=== PATIENT | female | born 1945 | race Caucasian/White ===

== ENCOUNTER 2019-06-15 09:52 | Inpatient (IN) | payer OTHER ==
[~2019-06-15] VITALS: Ht 160 cm; Wt 60.3 kg
[~2019-06-15 09:52] MED LIST: ATORVASTATIN CA10 MG PO; ATORVASTATIN CA20 MG PO; PANTOPRAZOLE SO40 MG PO; REQUIP0.5 MG PO; TRAZODONE HCL50 MG PO; TYLENOL WITH C1 EACH PO
--- OUTSIDE RECORDS SUMMARY | 2019-06-15 09:56 | XMS REPORT | Clinical Summary ---
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 Name Role Phone Oscar Pierson MD PCP Allergies No Known Allergies Medications End Date Status Medication Sig Dispensed Refills Start Date Active atorvastatin (LIPITOR) 40 TK 1 T PO QD 0 MG tablet HS 8 Active clopidogrel (PLAVIX) 75 TK 1 T PO QD 0 mg tablet 8 Active ergocalciferol (VITAMIN TK 1 C PO 0 D2) 50,000 unit capsule WEEKLY 8 Active FLUoxetine (PROzac) 20 MG TK 1 C PO QD 0 capsule IN THE 8 MORNING Active ADVAIR HFA 230-21 INL 2 PFS PO 2 mcg/actuation inhaler Q 12 H 8 Active gabapentin (NEURONTIN) TAKE 1 C PO 0 100 mg capsule TID 8 DIRECTED Active montelukast (SINGULAIR) TK 1 T PO QD 0 10 mg tablet IN THE PRAVIN 8 Active pantoprazole (PROTONIX) TK 1 T PO QD 0 40 MG EC tablet 8 Active rOPINIRole (REQUIP) 0.5 TK 1 T PO QD 0 MG tablet 8 Active traZODone (DESYREL) 50 MG TAKE 1 T PO 0 tablet HS PRN 8 Active Problems Problem Noted Date History of hemiarthroplasty of left hip 03/13/2018 Closed fracture of left hip 01/09/2018 Social History Date Tobacco Use Types Packs/Day Years Used Current Every Day Smoker Cigarettes Smokeless Tobacco: Never Used Alcohol Use Drinks/Week oz/Week Comments No Sex Assigned at Date Recorded Not on file Industry Job Start Date Occupation Not on file Not on file Not on file Travel End Travel History Travel Start No recent travel history available. Last Filed Vital Signs Not on file Plan of Treatment Health Maintenance Due Date Last Done Comments BREAST CANCER SCREENING 1995 COLONOSCOPY SCREENING 1995 SHINGLES VACCINES (#1) 1995 65+ PNEUMOCOCCAL VACCINE 2010 (1 of 2 - PCV13) INFLUENZA VACCINE 06/04/2019 Implants Device Identifier Shelf Expiration Date Model / Serial / Lot Implanted Type Area Manufactur er 09/28/2027 [id number] / / [id number] Stem Fml Pors Coat Std Ti #14 160mm Hip Joint Left: Hip [employer] Synergy - [id number] Implants NEPHEW Implanted: Qty: 1 on 01/09/2018 by ORTHOPEDIC Trenton Glaser MD S 02/20/2027 [id number] / / [id number] Head Unipol Implant Cob-Chr 46mm Hip Joint Left: Hip KAUR AND Tandem - [id number] Implants NEPHEW Implanted: Qty: 1 on 01/09/2018 by ORTHOPEDIC Trenton Glaser MD S 05/12/2027 [id number] / / [id number] Sleeve Hip 12/14 Tprd Unipol +8mm Hip Joint Left: Hip KAUR AND Tandem - [id number] Implants NEPHEW Implanted: Qty: 1 on 01/09/2018 by ORTHOPEDIC Trenton Glaser MD S Results Not on fileafter 06/14/2018 Insurance Type Payer Benefit Subscriber ID Effective Phone Address Plan / Dates Group HMO [employer] TEX[employer] xxxxxxxxx 2015-P JAIRO deal Advance Directives Patient has advance care planning documents, and code status on file. For more i nformation, please contact: Anibal Bowles [address] [place] [address] Date Inactivated Comments Code Status Date Activated 01/09/2018 6:18 PM Full Code 01/09/2018 9:12 AM Code Status decision reached by: Patient
--- OUTSIDE RECORDS SUMMARY | 2019-06-15 09:57 | XMS REPORT ---
Author Author [facility] Address Unknown Phone Unavailable Care Team Providers Care Reformatory Attendant Name Role Phone Unavailable Unavailable Payers Payer Name Policy Type Policy Number Effective Date Expiration Date Problems This patient has no known problems. Allergies, Adverse Reactions, Alerts Allergy Name Allergy Type Status Severity Reaction(s) Onset Date Inactive Date Treating Clinician Comments No Known Allergies DA Active U 2018-12-22 00:00:00 No Known Drug Intolerances DA Active U 2009-05-02 00:00:00 Not Converted 80. See Text. DA Active U 2009-05-02 00:00:00 No Known Contrast Allergies DA Active U 2007-10-27 00:00:00 No Known Drug Allergies DA Active U 2007-10-27 00:00:00 No Known Food Allergies DA Active U 2007-10-27 00:00:00 No Known Other Allergies DA Active U 2007-10-27 00:00:00 Medications This patient has no known medications. Results Test Description Test Time Test Comments Text Results Atomic Results Result Comments - XR CHEST 1 V 2019-02-20 11:37:00 FAX: Jude Anderson MD [phone] [place]: B St: REG Name: HERSON PINK [facility] : 1945 Age/S: 73/F [address] [facility] Unit #: [id number] Loc: [place] [address] Phys: Jude Hall MD Acct: [id number] Dis Date: Status: REG SDC PHONE #: [phone] Exam Date: 02/20/2019 1107 FAX #: [phone] Reason: S/P PORT-A-CATH PLACEMENT EXAMS: CPT CODE: [id number] XR CHEST 1 V 75057 HISTORY: Port-A-Cath placement. COMPARISON: December 29, 2018. Left Port-A-Cath with the tip projected over the SVC. No pneumothorax. Small left effusion with scarring. Right lower lobe mass is not clearly visible. COPD and scarring. Cardiomegaly. IMPRESSION: Left Port-A-Cath with the tip projected over the SVC. No pneumothorax. at 1132 Reported and signed by: Luciano Nesbitt M.D. CC: Jude Hall MD Technologist: Gracie Boston(Ly) Trnscrd Date/Time/By: 02/20/2019 (9248) : By: [email or web address] Orig Print D/T: S: 02/20/2019 (8422) PAGE 1 Signed Report CBC W/AUTO DIFF 2019-02-18 17:03:00 WHITE BLOOD CELL (test code=WBC) 9.2 K/mm3 4.5-12.5 RED BLOOD CELL (test code=RBC) 4.23 mill/mm3 3.7-5.2 HEMOGLOBIN (test code=HGB) 11.6 gram/dL 11.5-15.5 HEMATOCRIT (test code=HCT) 39.6 % 36.0-46.0 MEAN CELL VOLUME (test code=MCV) 93.6 fL 80-98 MEAN CELL HGB (test code=MCH) 27.4 picogram 27.0-33.0 MEAN CELL HGB CONCETRATION (test code=MCHC) 29.3 gram/dL 33.0-36.0 RED CELL DISTRIBUTION WIDTH (test code=RDW) 15.6 % 11.6-16.2 RED CELL DISTRIBUTION WIDTH SD (test code=RDW-SD) 53.1 fL 37.0-51.0 PLATELET COUNT (test code=PLT) 285 K/mm3 150-450 MEAN PLATELET VOLUME (test code=MPV) 11.6 fL 6.7-11.0 NEUTROPHIL % (test code=NT%) 63.0 % 39.0-69.0 IMMATURE GRANULOCYTE % (test code=IG%) 0.3 % 0.0-5.0 LYMPHOCYTE % (test code=LY%) 25.3 % 25.0-55.0 MONOCYTE % (test code=MO%) 9.0 % 0.0-10.0 EOSINOPHIL % (test code=EO%) 1.7 % 0.0-5.0 BASOPHIL % (test code=BA%) 0.7 % 0.0-1.0 NUCLEATED RBC % (test code=NRBC%) 0.0 % 0-0 NEUTROPHIL # (test code=NT#) 5.77 K/mm3 1.8-7.7 IMMATURE GRANULOCYTE # (test code=IG#) 0.03 x10 3/uL 0-0.03 LYMPHOCYTE # (test code=LY#) 2.32 K/mm3 1.0-5.0 MONOCYTE # (test code=MO#) 0.82 K/mm3 0-0.8 EOSINOPHIL # (test code=EO#) 0.16 K/mm3 0.0-0.5 BASOPHIL # (test code=BA#) 0.06 K/mm3 0.0-0.2 NUCLEATED RBC # (test code=NRBC#) 0.00 K/mm3 0.0-0.1 MANUAL DIFF REQUIRED (test code=MDIFF) NO, ONLY SCAN NEEDED DIFFERENTIAL [id number] 17:03:00* Test Item Value Reference Range Comments STAIN ACCEPTABILITY (test code=STN ACCEPTABLE) STAIN ACCEPTABLE MORPHOLOGY COMMENT (test code=MOC) NORMAL PLATELET ESTIMATE (test code=PLTEST) ADEQUATE PLATELET MORPHOLOGY (test code=PLTMORPH) SIZE VARIABLE COMPREHENSIVE METABOLIC [id number] 16:18:00* Test Item Value Reference Range Comments SODIUM (test code=NA) 141 mmol/L 136-145 POTASSIUM (test code=K) 3.7 mmol/L 3.5-5.1 CHLORIDE (test code=CL) 108.0 mmol/L 98-107 CARBON DIOXIDE (test code=CO2) 28.0 mmol/L 21-32 ANION GAP (test code=GAP) 8.7 10-20 GLUCOSE (test code=GLU) 112 mg/dL 74-106 BLOOD UREA NITROGEN (test code=BUN) 12 mg/dL 7-18 GLOMERULAR FILTRATION RATE (test code=GFR) > 60 mL/min >=60 Estimated GFR by using Modified MDRD formula.Chronic kidney disease is defined as either kidney damageor GFR <60 mL/min/1.73 m2 for >3 months. CREATININE (test code=CREAT) 0.70 mg/dL 0.55-1.02 Note change in reference range due to change in reagent. BUN/CREATININE RATIO (test code=BUN/CREA) 17.1 10-20 TOTAL PROTEIN (test code=PROT) 7.7 gram/dL 6.4-8.2 ALBUMIN (test code=ALB) 3.9 g/dL 3.4-5.0 GLOBULIN (test code=GLOB) 3.8 gram/dL 2.7-4.2 ALBUMIN/GLOBULIN RATIO (test code=A/G) 1.0 0.75-1.50 CALCIUM (test code=CA) 11.1 mg/dL 8.5-10.1 BILIRUBIN TOTAL (test code=BILT) 0.30 mg/dL 0.0-1.0 SGOT/AST (test code=AST) 23 IUnit/L 15-37 SGPT/ALT (test code=ALT) 22 IUnit/L 12-78 ALKALINE PHOSPHATASE TOTAL (test code=ALKP) 151 IUnit/L 45-117 Note change in reference range due to change in reagent. COMPREHENSIVE METABOLIC [id number] 16:09:00* Test Item Value Reference Range Comments SODIUM (test code=NA) 141 mmol/L 136-145 POTASSIUM (test code=K) 3.7 mmol/L 3.5-5.1 CHLORIDE (test code=CL) 108.0 mmol/L 98-107 CARBON DIOXIDE (test code=CO2) mmol/L 21-32 ANION GAP (test code=GAP) 10-20 GLUCOSE (test code=GLU) mg/dL 74-106 BLOOD UREA NITROGEN (test code=BUN) mg/dL 7-18 GLOMERULAR FILTRATION RATE (test code=GFR) mL/min >=60 CREATININE (test code=CREAT) mg/dL 0.55-1.02 BUN/CREATININE RATIO (test code=BUN/CREA) 10-20 TOTAL PROTEIN (test code=PROT) gram/dL 6.4-8.2 ALBUMIN (test code=ALB) g/dL 3.4-5.0 GLOBULIN (test code=GLOB) gram/dL 2.7-4.2 ALBUMIN/GLOBULIN RATIO (test code=A/G) 0.75-1.50 CALCIUM (test code=CA) mg/dL 8.5-10.1 BILIRUBIN TOTAL (test code=BILT) mg/dL 0.0-1.0 SGOT/AST (test code=AST) IUnit/L 15-37 SGPT/ALT (test code=ALT) IUnit/L 12-78 ALKALINE PHOSPHATASE TOTAL (test code=ALKP) IUnit/L 45-117 CBC W/AUTO [id number] 15:17:00* Test Item Value Reference Range Comments WHITE BLOOD CELL (test code=WBC) 9.2 K/mm3 4.5-12.5 RED BLOOD CELL (test code=RBC) 4.23 mill/mm3 3.7-5.2 HEMOGLOBIN (test code=HGB) 11.6 gram/dL 11.5-15.5 HEMATOCRIT (test code=HCT) 39.6 % 36.0-46.0 MEAN CELL VOLUME (test code=MCV) 93.6 fL 80-98 MEAN CELL HGB (test code=MCH) 27.4 picogram 27.0-33.0 MEAN CELL HGB CONCETRATION (test code=MCHC) 29.3 gram/dL 33.0-36.0 RED CELL DISTRIBUTION WIDTH (test code=RDW) 15.6 % 11.6-16.2 RED CELL DISTRIBUTION WIDTH SD (test code=RDW-SD) 53.1 fL 37.0-51.0 PLATELET COUNT (test code=PLT) 285 K/mm3 150-450 MEAN PLATELET VOLUME (test code=MPV) 11.6 fL 6.7-11.0 NEUTROPHIL % (test code=NT%) 63.0 % 39.0-69.0 IMMATURE GRANULOCYTE % (test code=IG%) 0.3 % 0.0-5.0 LYMPHOCYTE % (test code=LY%) 25.3 % 25.0-55.0 MONOCYTE % (test code=MO%) 9.0 % 0.0-10.0 EOSINOPHIL % (test code=EO%) 1.7 % 0.0-5.0 BASOPHIL % (test code=BA%) 0.7 % 0.0-1.0 NUCLEATED RBC % (test code=NRBC%) 0.0 % 0-0 NEUTROPHIL # (test code=NT#) 5.77 K/mm3 1.8-7.7 IMMATURE GRANULOCYTE # (test code=IG#) 0.03 x10 3/uL 0-0.03 LYMPHOCYTE # (test code=LY#) 2.32 K/mm3 1.0-5.0 MONOCYTE # (test code=MO#) 0.82 K/mm3 0-0.8 EOSINOPHIL # (test code=EO#) 0.16 K/mm3 0.0-0.5 BASOPHIL # (test code=BA#) 0.06 K/mm3 0.0-0.2 NUCLEATED RBC # (test code=NRBC#) 0.00 K/mm3 0.0-0.1 MANUAL DIFF REQUIRED (test code=MDIFF) NO, ONLY SCAN NEEDED DIFFERENTIAL [id number] 15:17:00* Test Item Value Reference Range Comments STAIN ACCEPTABILITY (test code=STN ACCEPTABLE) CABOT RINGS (test code=CAB) MORPHOLOGY COMMENT (test code=MOC) PLATELET ESTIMATE (test code=PLTEST) PLATELET MORPHOLOGY (test code=PLTMORPH) CBC W/AUTO [id number] 15:17:00* Test Item Value Reference Range Comments WHITE BLOOD CELL (test code=WBC) 9.2 K/mm3 4.5-12.5 RED BLOOD CELL (test code=RBC) 4.23 mill/mm3 3.7-5.2 HEMOGLOBIN (test code=HGB) 11.6 gram/dL 11.5-15.5 HEMATOCRIT (test code=HCT) 39.6 % 36.0-46.0 MEAN CELL VOLUME (test code=MCV) 93.6 fL 80-98 MEAN CELL HGB (test code=MCH) 27.4 picogram 27.0-33.0 MEAN CELL HGB CONCETRATION (test code=MCHC) 29.3 gram/dL 33.0-36.0 RED CELL DISTRIBUTION WIDTH (test code=RDW) 15.6 % 11.6-16.2 RED CELL DISTRIBUTION WIDTH SD (test code=RDW-SD) 53.1 fL 37.0-51.0 PLATELET COUNT (test code=PLT) 285 K/mm3 150-450 MEAN PLATELET VOLUME (test code=MPV) 11.6 fL 6.7-11.0 NEUTROPHIL % (test code=NT%) 63.0 % 39.0-69.0 IMMATURE GRANULOCYTE % (test code=IG%) 0.3 % 0.0-5.0 LYMPHOCYTE % (test code=LY%) 25.3 % 25.0-55.0 MONOCYTE % (test code=MO%) 9.0 % 0.0-10.0 EOSINOPHIL % (test code=EO%) 1.7 % 0.0-5.0 BASOPHIL % (test code=BA%) 0.7 % 0.0-1.0 NUCLEATED RBC % (test code=NRBC%) 0.0 % 0-0 NEUTROPHIL # (test code=NT#) 5.77 K/mm3 1.8-7.7 IMMATURE GRANULOCYTE # (test code=IG#) 0.03 x10 3/uL 0-0.03 LYMPHOCYTE # (test code=LY#) 2.32 K/mm3 1.0-5.0 MONOCYTE # (test code=MO#) 0.82 K/mm3 0-0.8 EOSINOPHIL # (test code=EO#) 0.16 K/mm3 0.0-0.5 BASOPHIL # (test code=BA#) 0.06 K/mm3 0.0-0.2 NUCLEATED RBC # (test code=NRBC#) 0.00 K/mm3 0.0-0.1 MANUAL DIFF REQUIRED (test code=MDIFF) NO, ONLY SCAN NEEDED DIFFERENTIAL [id number] 15:17:00* Test Item Value Reference Range Comments STAIN ACCEPTABILITY (test code=STN ACCEPTABLE) CABOT RINGS (test code=CAB) MORPHOLOGY COMMENT (test code=MOC) PLATELET ESTIMATE (test code=PLTEST) PLATELET MORPHOLOGY (test code=PLTMORPH) CBC W/AUTO [id number] 15:17:00* Test Item Value Reference Range Comments WHITE BLOOD CELL (test code=WBC) 9.2 K/mm3 4.5-12.5 RED BLOOD CELL (test code=RBC) 4.23 mill/mm3 3.7-5.2 HEMOGLOBIN (test code=HGB) 11.6 gram/dL 11.5-15.5 HEMATOCRIT (test code=HCT) 39.6 % 36.0-46.0 MEAN CELL VOLUME (test code=MCV) 93.6 fL 80-98 MEAN CELL HGB (test code=MCH) 27.4 picogram 27.0-33.0 MEAN CELL HGB CONCETRATION (test code=MCHC) 29.3 gram/dL 33.0-36.0 RED CELL DISTRIBUTION WIDTH (test code=RDW) 15.6 % 11.6-16.2 RED CELL DISTRIBUTION WIDTH SD (test code=RDW-SD) 53.1 fL 37.0-51.0 PLATELET COUNT (test code=PLT) 285 K/mm3 150-450 MEAN PLATELET VOLUME (test code=MPV) 11.6 fL 6.7-11.0 NEUTROPHIL % (test code=NT%) 63.0 % 39.0-69.0 IMMATURE GRANULOCYTE % (test code=IG%) 0.3 % 0.0-5.0 LYMPHOCYTE % (test code=LY%) 25.3 % 25.0-55.0 MONOCYTE % (test code=MO%) 9.0 % 0.0-10.0 EOSINOPHIL % (test code=EO%) 1.7 % 0.0-5.0 BASOPHIL % (test code=BA%) 0.7 % 0.0-1.0 NUCLEATED RBC % (test code=NRBC%) 0.0 % 0-0 NEUTROPHIL # (test code=NT#) 5.77 K/mm3 1.8-7.7 IMMATURE GRANULOCYTE # (test code=IG#) 0.03 x10 3/uL 0-0.03 LYMPHOCYTE # (test code=LY#) 2.32 K/mm3 1.0-5.0 MONOCYTE # (test code=MO#) 0.82 K/mm3 0-0.8 EOSINOPHIL # (test code=EO#) 0.16 K/mm3 0.0-0.5 BASOPHIL # (test code=BA#) 0.06 K/mm3 0.0-0.2 NUCLEATED RBC # (test code=NRBC#) 0.00 K/mm3 0.0-0.1 MANUAL DIFF REQUIRED (test code=MDIFF) NO, ONLY SCAN NEEDED DIFFERENTIAL [id number] 15:17:00* Test Item Value Reference Range Comments STAIN ACCEPTABILITY (test code=STN ACCEPTABLE) MORPHOLOGY COMMENT (test code=MOC) PLATELET ESTIMATE (test code=PLTEST) PLATELET MORPHOLOGY (test code=PLTMORPH) CBC W/AUTO [id number] 15:17:00* Test Item Value Reference Range Comments WHITE BLOOD CELL (test code=WBC) 9.2 K/mm3 4.5-12.5 RED BLOOD CELL (test code=RBC) 4.23 mill/mm3 3.7-5.2 HEMOGLOBIN (test code=HGB) 11.6 gram/dL 11.5-15.5 HEMATOCRIT (test code=HCT) 39.6 % 36.0-46.0 MEAN CELL VOLUME (test code=MCV) 93.6 fL 80-98 MEAN CELL HGB (test code=MCH) 27.4 picogram 27.0-33.0 MEAN CELL HGB CONCETRATION (test code=MCHC) 29.3 gram/dL 33.0-36.0 RED CELL DISTRIBUTION WIDTH (test code=RDW) 15.6 % 11.6-16.2 RED CELL DISTRIBUTION WIDTH SD (test code=RDW-SD) 53.1 fL 37.0-51.0 PLATELET COUNT (test code=PLT) 285 K/mm3 150-450 MEAN PLATELET VOLUME (test code=MPV) 11.6 fL 6.7-11.0 NEUTROPHIL % (test code=NT%) 63.0 % 39.0-69.0 IMMATURE GRANULOCYTE % (test code=IG%) 0.3 % 0.0-5.0 LYMPHOCYTE % (test code=LY%) 25.3 % 25.0-55.0 MONOCYTE % (test code=MO%) 9.0 % 0.0-10.0 EOSINOPHIL % (test code=EO%) 1.7 % 0.0-5.0 BASOPHIL % (test code=BA%) 0.7 % 0.0-1.0 NUCLEATED RBC % (test code=NRBC%) 0.0 % 0-0 NEUTROPHIL # (test code=NT#) 5.77 K/mm3 1.8-7.7 IMMATURE GRANULOCYTE # (test code=IG#) 0.03 x10 3/uL 0-0.03 LYMPHOCYTE # (test code=LY#) 2.32 K/mm3 1.0-5.0 MONOCYTE # (test code=MO#) 0.82 K/mm3 0-0.8 EOSINOPHIL # (test code=EO#) 0.16 K/mm3 0.0-0.5 BASOPHIL # (test code=BA#) 0.06 K/mm3 0.0-0.2 NUCLEATED RBC # (test code=NRBC#) 0.00 K/mm3 0.0-0.1 MANUAL DIFF REQUIRED (test code=MDIFF) NO, ONLY SCAN NEEDED DIFFERENTIAL [id number] 15:17:00* Test Item Value Reference Range Comments STAIN ACCEPTABILITY (test code=STN ACCEPTABLE) CABOT RINGS (test code=CAB) MORPHOLOGY COMMENT (test code=MOC) PLATELET ESTIMATE (test code=PLTEST) PLATELET MORPHOLOGY (test code=PLTMORPH) CBC W/AUTO [id number] 15:12:00* Test Item Value Reference Range Comments WHITE BLOOD CELL (test code=WBC) K/mm3 4.5-12.5 RED BLOOD CELL (test code=RBC) mill/mm3 3.7-5.2 HEMOGLOBIN (test code=HGB) 11.6 gram/dL 11.5-15.5 HEMATOCRIT (test code=HCT) 39.6 % 36.0-46.0 MEAN CELL VOLUME (test code=MCV) fL 80-98 MEAN CELL HGB (test code=MCH) picogram 27.0-33.0 MEAN CELL HGB CONCETRATION (test code=MCHC) gram/dL 33.0-36.0 RED CELL DISTRIBUTION WIDTH (test code=RDW) % 11.6-16.2 RED CELL DISTRIBUTION WIDTH SD (test code=RDW-SD) fL 37.0-51.0 PLATELET COUNT (test code=PLT) K/mm3 150-450 MEAN PLATELET VOLUME (test code=MPV) fL 6.7-11.0 NEUTROPHIL % (test code=NT%) % 39.0-69.0 IMMATURE GRANULOCYTE % (test code=IG%) % 0.0-5.0 LYMPHOCYTE % (test code=LY%) % 25.0-55.0 MONOCYTE % (test code=MO%) % 0.0-10.0 EOSINOPHIL % (test code=EO%) % 0.0-5.0 BASOPHIL % (test code=BA%) % 0.0-1.0 NEUTROPHIL # (test code=NT#) K/mm3 1.8-7.7 LYMPHOCYTE # (test code=LY#) K/mm3 1.0-5.0 MONOCYTE # (test code=MO#) K/mm3 0-0.8 EOSINOPHIL # (test code=EO#) K/mm3 0.0-0.5 BASOPHIL # (test code=BA#) K/mm3 0.0-0.2 [id number] 14:23:00 RUN DATE: 12/30/18 [facility] PAGE 1 RUN TIME: 1423 Specimen Inqui ry RUN USER: INTERFACE PATIENT: HERSON PINK ACCT #: V [id number] LOC: [place] U #: [id number] AGE/SX: 73/F ROOM: RE12/29/18REG DR: Kal Shaffer MD : 45 BED: DIS: [place] [facility] [place] SPEC #: [id number] RECD: 12/29/18 STATUS: KWADWO MCLEOD #: [id number] ATIF: 12/29/18 DR: Kal Shaffer MD ENTERED: 12/29/18 SP TYPE: LUNG OTHR DR: Oscar Pierson MD TUMOR REGISTRYORDERED: GROSS COPIES TO: Oscar Pierson MD [address] [place] [address] TUMOR REGISTRY Kal Shaffer MD [address] [place] [address] MARKERS: MALIGNANCY PROCE DURES: GROSS (12/30/18) TISSUES: LUNG, NOS - BX AND 4 SLIDES CLINICAL HISTORY COLLECTION DATE: 12/29/2018 RIGHT LUNG BIOPSY PO ST-OP DIAGNOSIS: BRONCHOGENIC CARCINOMA COMMENT Dr. Giorgio Flowers was n otified at 2:10 p.m. on 12/30/2018. FINAL DIAGNOSIS Lung, right, biops y: ADENOCARCINOMA, WELL DIFFERENTIATED Lung, right, cytologic e valuation: POSITIVE FOR MALIGNANCY, CONSISTENT WITH ADENOCARCINOMA FA/sm CONTINUED ON NEXT PAGE ------ ------RUN DATE: 12/30/18 [facility] RUN TIME: 1423 Specimen Inquiry RUN USER: INTERFACE SPEC #: [id number] PATIENT: HERSON PINK #[id number] (Continued) FINAL DIAGNOSIS (Continued) D 38318, 6[address]18 MACROSCOPIC The specimen is re ceived in formalin and labeled with the patient's name. The specimen is label ed as "right lung biopsy" and consists of multiple gee-white core biopsies ran ging from 0.3 to 1.0 cm, submitted in entirely in a single cassette. Also rec eived are four smear slides which are submitted for cytologic evaluation. GROSS PERFORMED AT [facility] [address] [place] [phone] MICROSCOPIC Section s show a well differentiated adenocarcinoma. The tumor cells show mild nuclear pleomorphism, moderate amount of cytoplasm, and rare intranuclear pseudoinclu sions, Focal desmoplastic stromal reaction is present. No normal appearing dl ng tissue is present. No necrosis is present. Cytologic evaluation of ea rs shows single and groups of atypical cells with mild nuclear pleomorphisms, moderate amount of cytoplasm some of which are vacuolated, nuclear membrane ir regularities and rare intranuclear pseudoinclusion. Cytologic findings are co nsistent with adenocarcinoma. MICROSCOPIC PERFORMED AT [facility] All of the stains, including any controls performed, stain appropr iately. [address] [address] [phone] PERFORMING SITE Diagnosis performed at: [facility] [address] [address] 04 CONTINUED ON NEXT PAGE RUN DATE: 12/30/18 [facility] PAGE 3 RUN TIME: 142 Specimen In quiry RUN USER: INTERFACE SPEC #: [id number] PATIENT: FREDA PINK #[id number] (Continued) Signed SIGNATURE ON FILE Juan Pablo Ferreira MD 12/30/18 1423 ---- -------- END OF REPORT [id number] 14:23:00 RUN DATE: 01/29/19 [facility] PAGE 1 RUN TIME: 1241 Specimen Inqui ry RUN USER: INTERFACE PATIENT: JOESPHHERSON ACCT #: V [id number] LOC: [place] U #: [id number] AGE/SX: 73/F ROOM: RE12/29/18[facility] DR: Kal Shaffer MD : 45 BED: DIS: STATUS: [facility] TLOC: SPEC #: [id number] RECD: 12/29/18-1049 STATUS: KWADWO MCLEOD #: [id number] ATIF: 12/29/18- SUBM DR: Kal Shaffer MD ENTERED: 12/29/18 SP TYPE: LUNG OTHR DR: Oscar Pierson MD TUMOR REGISTRYORDERED: GROSS COPIES TO: Oscar Pierson MD [address] [place] [address] TUMOR REGISTRY Kal Shaffer MD [address] [place], [place] [id number] MARKERS: MALIGNANCY PROCE DURES: GROSS (12/30/18-1334) TISSUES: LUNG, NOS - BX AND 4 SLIDES ADDENDUM FINDINGS Addendum #1 Entered: 01/29/19 Reports are received from [facility] ([id number]) and the interpretation is transcribed below: EGFR REPORT Clinical Data Adenocar cinoma, well differentiated; Lung nodules; Bronchogenic carcinoma Interpreta tion Tissue NEGATIVE FOR MUTATIONS IN EGFR Clinical significance Epiderma l growth factor receptor (EGFR) mutation analysis detects EGFR gene mutations in tumor specimens of patients most commonly found in nonsmall cell lung cancer ( NSCLC) CONTINUED ON NEXT PAGE R UN DATE: 01/29/19 [place] [facility] PAGE 2 RUN TIME: 1241 Specimen Inquiry RUN USER: INTERFACE SPEC #: [id number] PATIENT: HERSON PINK #[id number] (Continued) ADDENDUM FINDINGS (C ivis) (1). When activated, EGFR plays a role in cellular tumor growth and proliferation and is the target of tyrosine kinase inhibitors (TKI). Clinical s fifi have found that up to 20% of NSCLC tumors harbor EGFR mutations, and valerie t about 85% of patients with these mutations respond to TKI treatment (2). Note: Mutation test results should be interpreted within the context of clinical information and all other relevant findings on this patient. No therapeutic ac tion should be taken solely based upon these results. Methodology The tumo r area on an H E slide for this formalin-fixed paraffin-embedded (FFPE) specimen was identified by a board certified pathologist and is >20% of tissue. The tumor area is then macrodissected and genomic DNA is extracted and subjected to a PCR assay (tumor burden must be >10%). Amplified products are bi- directionally analyzed by capillary electrophoresis to evaluate for the presence of deletion, insertion, or single nucleotide substitution within exons 18 (G719X), 19 ( U839-T433), 20 (T790M) or 21 (L858R) of the EGFR gene. The limit of detection is > 20%. For the sensitive detection of T790M mutation in Exon 20, a PCR based assay is used that amplifies mutant-specific sequences in samples that contain a mixture of mutant and wild-type DNA and relies on fluorescent probes for detection. Detection of a mutation depends on sample integrity and the amount of amplifiable DNA present in the specimen. The analytical sensitivity of this assay is 0.5% mutant DNA in the background of wild type genomic DNA. Interpretation of Data Negative: No mutation(s) detected Positive: One or more mutations detected References 1. Matt ARANA, Megan S, Barry MR, et al. [employer] Society of Clinical Oncology Provisional Clinical Opinion: epidermal growth factor receptor (EGFR) mutation testing for patients with advanced kwa-yjprq-wkjs lung cancer considering first-line EGFR tyrosine kinase inhibitor therapy. J Clin Oncol 2011;29:2121- 7. 2. Eliecer C, Ifeanyi Y-L, Carolina G, et al. Erlotinib Erlotinib versus chemotherapy as first-line treatment for patients with advanced EGFR mutation-positive pwq-nqlda-nrmy lung cancer (OPTIMAL, CTONG-0802): a multicentre, open-label, randomized, phase 3 study. Lancet Oncol 2011;12:735-42. This test was developed and its performance characteristics determined by [facility]. It has not been cleared or approved by the U.S. Food and Drug Admini stration. The FDA has determined that such clearance is not necessary. This test is used for clinical purposes. It should not be regarded as investigational or for research. This laboratory is certified under the Clinical Laboratory Impro vement Amendments of 1988 (CLIA-88) as qualified to perform high complexity cli nical testing. The above report was reviewed and interpretive comments are p rovided. The comments are approved for the medical records of the identified ignacio de dios with my electronic signature. Electronic Signature Cori Cobb CONTINUED ON NEXT PAGE RUN DATE: 01/29/19 [facility] P AGE 3 RUN TIME: 1241 Specimen Inquiry RUN USER: INTERFACE SPEC #: [id number] PATIENT: HERSON PINK Cas #[id number] (Continued) ADDENDUM FINDINGS (Cont inued) CPT Code(s): 94856,14657,D9698-66 ICD Code(s): C34.90 The Techn ical and Professional components were performed at [facility], [address] , [address], [place] [address]. FISH REPORT Clinical Data Adenocarcinoma, well differe ntiated; Lung nodules; Bronchogenic carcinoma Interpretation ALK(2p23): Negative for rearrangement of ALK. Comment: No rearrangements detected on A LK(2p23) above the cut off value. 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 Th e tumor tissue in the specimen was analyzed using ALK break apart FISH probe ass ay. Fluorescence in situ hybridization (FISH) was performed using probes detect ing rearrangements of ALK. (All probes [employer]) Methodolgy: The ALK B reak Apart FISH Probe assay is a qualitative test to detect rearrangements invo lving the ALK gene via fluorescence in situ hybridization (FISH) in formalin-fix ed paraffin-embedded (FFPE), non-small cell lung cancer (NSCLC) tissue specimen s. Interphase FISH is performed to screen for the loci indicated above and does not detect other chromosomal abnormalities. INTERPHASE FISH RESULTS Probe % Negative % Positive Reserve Value % Nuclei Nuclei Nuclei Analyzed ALK (2p23_LUNG) 100 0 9.0 50 Scoring Process: The scoring for this case was co mpleted using a per cell nuclei approach to signal counting and was performed m anually by a licensed technologist. Disclaimer: This test was developed and its performance characteristics determined by CONTINUED ON NEXT PAGE RUN DATE: 01/29/19 [facility] PAGE 4 RUN TIME: 1241 Specimen Inquiry RUN USER: INTERFACE SPEC #: [id number] PATIENT: HERSON PINK #[id number] (Continued)------ ------ ADDENDUM FINDINGS (Continued) [facility]. It has not been cleared or approved by the U.S. Food and Drug Administration. The FDA has determined that such clearance is not necessary. This test is used for clinical purposes. It should not be regarded as investigational or for researc h. This laboratory is certified under the Clinical Laboratory Improvement Amend ments of 1988 (CLIA-88) as qualified to perform high complexity clinical testing . Electronic Signature Alban Ferraro M.D. CPT Code(s): 12950 ICD Co de(s): C34.90 The Technical and Professional components were performed at [facility], [address] [place] [address], [address], [place] [address] . Addendum Signed SIGNATURE ON FILE Juan Pablo Ferreira MD 01/29/19 1240 CLINICAL HISTORY COLLECTION DATE: 12/29/2018 R IGHT LUNG BIOPSY POST-OP DIAGNOSIS: BRONCHOGENIC CARCINOMA COMMRAUL Flowers was notified at 2:10 p.m. on 12/30/2018. FINAL DIAGNOSIS Lung, right, biopsy: ADENOCARCINOMA, WELL DIFFERENTIATED Riley g, right, cytologic evaluation: POSITIVE FOR MALIGNANCY, CONSISTENT WITH ADENOCARCINOMA FA/ D 64101, [address] CONTINUED ON NEXT PAGE RUN DATE: 01/29/19 [place] - Lab PAGE 5 RUN TIME: 1241 Specimen Inquiry RUN USER: INTERFACE SPEC #: [id number] PATIENT: HERSON PINK #[id number] (Continu ed) MACROSCOPIC The specimen is received in formalin a nd labeled with the patient's name. The specimen is labeled as "right lung bi opsy" and consists of multiple gee-white core biopsies ranging from 0.3 to 1.0 cm, submitted in entirely in a single cassette. Also received are four smear slides which are submitted for cytologic evaluation. [place] [address] [phone])[phone] MICROSCOPIC Sections show a well differ entiated adenocarcinoma. The tumor cells show mild nuclear pleomorphism, moder ate amount of cytoplasm, and rare intranuclear pseudoinclusions, Focal desmopl astic stromal reaction is present. No normal appearing lung tissue is present . No necrosis is present. Cytologic evaluation of smears shows single and groups of atypical cells with mild nuclear pleomorphisms, moderate amount of c ytoplasm some of which are vacuolated, nuclear membrane irregularities and rar e intranuclear pseudoinclusion. 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 MICROSCOPIC PERFORMED AT [facility] All of t he stains, including any controls performed, stain appropriately. [facility] [address] [place] [address] [phone] PERFORMING SITE Diagnosis performed at: [facility] [address] [address] [phone] Signed SIGNATURE ON FILE Juan Pablo Ferreira MD 12/30/18 1423 END OF REPO RT - XR CHEST 1 [id number] 14:04:00 [place]: B St: REG Name: HERSON MCGEE [facility] : [birth year] Age/S: 73/F [address] Unit #: [id number] Loc: [place] [address] Phys: Giorgio Flowers MD Acct: [id number] Dis Date: Status: [place] [facility] [place] #: [phone] Exam Date: 12/29/2018 6255 FAX #: [phone] Reason: POST LUNG BX EXAMS: CPT CODE: [id number] XR CHEST 1 V [id number] HISTORY: Post lung biopsy. COMPARISON: Chest x-ray from same day. 5% right apical pneu mothorax. Basal dependent changes and scarring. Ill-defined nodular densit y in the left base COPD. Cardiac silhouette is mildly enlarged IMPRESSION: 5% right apical pneumothorax is unchanged. at 1404 Reported and signed by: Luciano Nesbitt M.D. CC: Technologist: CHUCK ABBOTT) Mela Date/Time/By: 12/29/2018 (3540) : By: [email or web address] Orig Print D/T: S: 12/29/2018 (1764) PAGE 1 Signed Report - XR CHEST 1 [id number] 11:20:00 [place]: B St: REG Name: HERSON MCGEE [facility] : [birth year] Age/S: 73/F [address] Unit #: [id number] Loc: [place] [address] Phys: Giorgio Flowers MD Acct: [id number] Dis Date: Status[place] [facility] [place] #: [phone] Exam Date: 12/29/2018 1118 FAX #: [phone] Reason: LUNG BX. EXAMS: CPT CODE: [id number] XR CHEST 1 V 66977 REASON FOR EXAM: Pneumothorax status post right lower lobe lung mass biopsy EXAM ORDER DATE: 12/29/2018 12:00 PM Ordering M.Rojas: Giorgio Flowers MD PROCEDURE: - XR CHEST 1 V COMPARISON: FINDINGS: Portable AP frontal view of the chest obtained at 11:06 AM shows minimal hemorrhage in the right lower lobe status post biopsy of right lower lobe lung mass. There is no evidence of effusion. The heart size is minimally enlarged. Pulmonary vasculatures are unremarkable. IMPRES CHRISTY: Small right apical pneumonia thorax less than 5% Electronicall y Signed by Martina Flowers on 12/29/2018 at 1120 Reported and signed by: Giorgio Flowers M.D. CC: Technologist: RT SHOBHA(Ly) Trnscrd Date/Time/By: 12/29/2018 (1120) : By: [email or web address] Orig Print D/T: S: 12/29/2018 (2218) PAGE 1 Signed Report - CT GUID [facility]DL [facility] 2018-12-29 11:03:00 Name: HERSON PINK [facility] : 1945 Age/S: 73 / F [address] [facility] Unit #: [id number] Loc: [place] [address] Phys: Kal Shaffer MD Acct: [id number] Dis Date: Status[place] [facility] [place] #: [phone] Exam Date: 12/29/2018 1012 FAX #: [phone] Reason: LUNG BIOPSY EXAMS: CPT CODE: [id number] CT GUID [facility] [address] REASON FOR EXAM: Lung masses. PROCEDURE: CT-guided biopsy of right lower lobe mass Ujwt-er-ycax procedure time is approximately: 45 minutes FINDINGS: After informed consent was obtained, the patient was brought to CT and placed prone on the table. All elements of maximal sterile barrier technique were followed. Prior to the biopsy, axial images of the right lower lobe mass were obtained without intravenous contrast. Images of the CT were reviewed and the right lower lobe mass was localized. A safe pathway was found between the subcutaneous entry site and the right lower lobe mass. The access site was prepped and draped in the usual sterile fashion. A guiding needle was advanced into right lower lobe mass. Multiple core biopsies were then performed using a 20-gauge biopsy gun. The needle was removed and hemostasis obtained. MEDICATIONS: 1mg versed 25mcg fentanyl COMPLICATIONS: No immediate Blood loss: Less than 5 mL Fluoroscopic dose:370 mGy IMPRESSION: Technically successful CT-guided biopsy of right lower lobe mass. at 1103 Reported and signed by: Giorgio Flowers M.D. CC: Technologist:Brittany Pierson,RT(R),CT CTDI: DLP: Trnscb Date/Time: 12/29/2018 (0253) Harshad Orig Print D/T: S: 12/29/2018 (4147) CTDI: DLP: PAGE 1 Signed Report CBC W/AUTO [id number] 18:12:00* Test Item Value Reference Range Comments WHITE BLOOD CELL (test code=WBC) 13.1 K/mm3 4.5-12.5 RED BLOOD CELL (test code=RBC) 4.08 mill/mm3 3.7-5.2 HEMOGLOBIN (test code=HGB) 11.6 gram/dL 11.5-15.5 HEMATOCRIT (test code=HCT) 38.7 % 36.0-46.0 MEAN CELL VOLUME (test code=MCV) 94.9 fL 80-98 MEAN CELL HGB (test code=MCH) 28.4 picogram 27.0-33.0 MEAN CELL HGB CONCETRATION (test code=MCHC) 30.0 gram/dL 33.0-36.0 RED CELL DISTRIBUTION WIDTH (test code=RDW) 14.4 % 11.6-16.2 RED CELL DISTRIBUTION WIDTH SD (test code=RDW-SD) 50.4 fL 37.0-51.0 PLATELET COUNT (test code=PLT) 281 K/mm3 150-450 MEAN PLATELET VOLUME (test code=MPV) 11.3 fL 6.7-11.0 NEUTROPHIL % (test code=NT%) 67.8 % 39.0-69.0 IMMATURE GRANULOCYTE % (test code=IG%) 0.2 % 0.0-5.0 LYMPHOCYTE % (test code=LY%) 19.6 % 25.0-55.0 MONOCYTE % (test code=MO%) 10.2 % 0.0-10.0 EOSINOPHIL % (test code=EO%) 1.5 % 0.0-5.0 BASOPHIL % (test code=BA%) 0.7 % 0.0-1.0 NUCLEATED RBC % (test code=NRBC%) 0.0 % 0-0 NEUTROPHIL # (test code=NT#) 8.87 K/mm3 1.8-7.7 IMMATURE GRANULOCYTE # (test code=IG#) 0.03 x10 3/uL 0-0.03 LYMPHOCYTE # (test code=LY#) 2.56 K/mm3 1.0-5.0 MONOCYTE # (test code=MO#) 1.34 K/mm3 0-0.8 EOSINOPHIL # (test code=EO#) 0.19 K/mm3 0.0-0.5 BASOPHIL # (test code=BA#) 0.09 K/mm3 0.0-0.2 NUCLEATED RBC # (test code=NRBC#) 0.00 K/mm3 0.0-0.1 PROTHROMBIN [id number] 18:10:00* Test Item Value Reference Range Comments PROTHROMBIN TIME PATIENT (test code=PTP) 10.8 seconds 9.0-14.0 INTERNATIONAL NORMAL RATIO (test code=INR) 0.9 0.8-1.2 The therapeutic range for oral anticoagulant therapy formost indications is an international normalized ratio (INR)of between 2.0 and 3.0. The recommended therapeutic INRrange for various clinical situations is listed below: Clinical Situation INR range Pulmonary e mbolism treatment (2.0-3.0)Venous thrombosis treatmentVenous thrombosis prophylaxis (high risk surgery)Prevention of systemic embolism from: Acute myocardial infarction Valvular heart disease Atrial fibrillation Mechanical prosthetic heart valves (2.5-3.5) THROMBOPLASTIN TIME [id number] 18:10:00* Test Item Value Reference Range Comments THROMBOPLASTIN TIME PARTIAL (test code=PTT) 33.2 seconds 25.0-36.5 CBC W/AUTO [id number] 17:54:00* Test Item Value Reference Range Comments WHITE BLOOD CELL (test code=WBC) K/mm3 4.5-12.5 RED BLOOD CELL (test code=RBC) mill/mm3 3.7-5.2 HEMOGLOBIN (test code=HGB) 11.6 gram/dL 11.5-15.5 HEMATOCRIT (test code=HCT) 38.7 % 36.0-46.0 MEAN CELL VOLUME (test code=MCV) fL 80-98 MEAN CELL HGB (test code=MCH) picogram 27.0-33.0 MEAN CELL HGB CONCETRATION (test code=MCHC) gram/dL 33.0-36.0 RED CELL DISTRIBUTION WIDTH (test code=RDW) % 11.6-16.2 RED CELL DISTRIBUTION WIDTH SD (test code=RDW-SD) fL 37.0-51.0 PLATELET COUNT (test code=PLT) K/mm3 150-450 MEAN PLATELET VOLUME (test code=MPV) fL 6.7-11.0 NEUTROPHIL % (test code=NT%) % 39.0-69.0 IMMATURE GRANULOCYTE % (test code=IG%) % 0.0-5.0 LYMPHOCYTE % (test code=LY%) % 25.0-55.0 MONOCYTE % (test code=MO%) % 0.0-10.0 EOSINOPHIL % (test code=EO%) % 0.0-5.0 BASOPHIL % (test code=BA%) % 0.0-1.0 NEUTROPHIL # (test code=NT#) K/mm3 1.8-7.7 LYMPHOCYTE # (test code=LY#) K/mm3 1.0-5.0 MONOCYTE # (test code=MO#) K/mm3 0-0.8 EOSINOPHIL # (test code=EO#) K/mm3 0.0-0.5 BASOPHIL # (test code=BA#) K/mm3 0.0-0.2
[2019-06-15] MEDS ORDERED: SODIUM CHLORIDE 0.9% 1000ML 1,000 ML IV STA ×3 (10:09→13:41)
[2019-06-15 10:38] LABS: BASOPHILS # (AUTO) 0.1 (0.0-0.1); BASOPHILS % 0.6 % (0.0-1.0); EOSINOPHILS # (AUTO) 0.2 (0.0-0.4); EOSINOPHILS % 1.7 % (0.0-6.0); HEMOGLOBIN 9.4 g/dL (12.0-16.0); LYMPHOCYTES # (AUTO) 2.6 (1.0-3.2); LYMPHOCYTES % 24.1 % (18.0-39.1); MEAN CORPUSCULAR HEMOGLOBIN 26.2 pg (28-32); MEAN CORPUSCULAR HGB CONC 30.3 g/dL (31-35); MEAN CORPUSCULAR VOLUME 86.4 fL (81-99); MONOCYTES # (AUTO) 1.1 (0.2-0.8); MONOCYTES % 10.3 % (4.4-11.3); NEUTROPHILS # (AUTO) 6.8 (2.1-6.9); NEUTROPHILS % 63.1 % (38.7-80.0); PLATELET COUNT 218 x10e3/uL (140-360); RED BLOOD COUNT 3.59 x10e6/uL (3.6-5.1); RED CELL DISTRIBUTION WIDTH 17.2 % (11.7-14.4)
[2019-06-15 10:50] LABS: INR 0.91; PARTIAL THROMBOPLASTIN TIME 28.5 seconds (23.8-35.5); PROTHROMBIN TIME 12.7 seconds (11.9-14.5)
--- NOTE | 2019-06-15 10:56 | Diagnostic Imaging Report ---
EXAMINATION: CHEST SINGLE (PORTABLE) INDICATION: Weakness COMPARISON: None FINDINGS: LINES/TUBES:Left chest port with catheter tip in the superior vena cava. EKG leads overlie the chest. LUNGS:The lungs are moderately inflated. Focal airspace opacity at the peripheral left lung base. Mild right basilar subsegmental atelectasis. PLEURA:Likely trace left pleural effusion. No pneumothorax. MEDIASTINUM:The cardiomediastinal silhouette appears normal in size and shape. Atherosclerotic calcifications of the thoracic aorta. BONES/SOFT TISSUES:No acute osseous injury. ABDOMEN:No free air under the diaphragm. IMPRESSION: Focal airspace opacity at the peripheral left lung base is consistent with pneumonia in the proper clinical setting. Mild subsegmental atelectasis at the right lung base. RECOMMENDATIONS: Follow-up chest radiograph in 6-8 weeks to ensure resolution and exclude underlying lung lesion. Signed by: Surjit Suggs MD on 06/15/2019 10:53 AM
[2019-06-15 10:59] LABS: ALANINE AMINOTRANSFERASE 16 IU/L (0-55); ALBUMIN 3.2 g/dL (3.5-5.0); ALKALINE PHOSPHATASE 146 IU/L (40-150); ANION GAP 11.2 mmol/L (8-16); BLOOD UREA NITROGEN 13 mg/dL (7-26); BUN/CREATININE RATIO 19 (6-25); CALCIUM 10.8 mg/dL (8.4-10.2); CARBON DIOXIDE 23 mmol/L (22-29); CHLORIDE 109 mmol/L (98-107); CREATINE KINASE 74 IU/L (29-168); CREATININE, SERUM 0.69 mg/dL (0.57-1.11); EST GLOMERULAR FILTRATION RATE > 60 ML/MIN (60-); GLUCOSE 117 mg/dL (74-118); POTASSIUM 3.2 mmol/L (3.5-5.1); SODIUM 140 mmol/L (136-145)
[2019-06-15 11:30] LABS: BILIRUBIN,URINE NEGATIVE (NEGATIVE); CLARITY,URINE SL CLOUDY (CLEAR); COLOR,URINE YELLOW (YELLOW); KETONES,URINE NEGATIVE (NEGATIVE); LEUKOCYTE ESTERASE ,URINE TRACE (NEGATIVE); NITRITE,URINE NEGATIVE (NEGATIVE); PROTEIN,URINE DIPSTICK NEGATIVE (NEGATIVE); URINE UROBILINOGEN 0.2 mg/dL (0.2 - 1)
[2019-06-15 11:49] LABS: AMORPHOUS SEDIMENT,URINE MODERATE (FEW); BACTERIA,URINE MANY /HPF; EPITHELIAL CELLS,URINE MODERATE /LPF
[2019-06-15] MEDS ORDERED: POTASSIUM CHLORIDE 20 MEQ TAB CR PO ONE (11:59)
[2019-06-15] MEDS ORDERED: ASPIRIN 81 MG CHEW TAB PO ONE (12:00)
[2019-06-15] MEDS ORDERED: ONDANSETRON HCL INJ 2MG/ML 2ML 2 MG/ML VIAL IV PRN (12:00)
[2019-06-15] MEDS: AZITHROMYCIN 500MG/NS 250 ML 250 ML IV SCH (12:19)
[2019-06-15] MEDS: CEFEPIME 2 GM/NS 0.9% 100 ML 100 ML IV SCH (12:19)
--- NOTE | 2019-06-15 12:24 | Diagnostic Imaging Report ---
History:General weakness, headache, syncope Comparison studies: None Technique: Axial images were obtained from the skull base to the vertex. Coronal and sagittal images reconstructed from the axial data. Dose modulation, iterative reconstruction, and/or weight based adjustment of the mA/kV was utilized to reduce the radiation dose to as low as reasonably achievable. Intravenous contrast: None Findings: Scalp/skull: No abnormalities. Extra-axial spaces: No masses. No fluid collections. Brain sulci: Mildly prominent. Ventricles: Mild compensatory dilatation. No hydrocephalus. Parenchyma: Subtle hypodensities in the supratentorial white matter are small vessel ischemic changes. Old cavitated lacunar insults (heads of the caudate and adjacent putamina) are associated with compensatory dilatation of the frontal horns. No masses, hemorrhage, acute or chronic cortical vascular insults. Sellar/suprasellar region: No abnormalities. Craniocervical junction: Patent foramen magnum. No Chiari one malformation. Incidental findings: Subtle atherosclerotic calcifications in the carotid siphons . Impression: No acute abnormalities. Chronic findings: 1. Mild generalized volume loss. 2. Mild supratentorial white matter small vessel ischemic changes. 3. Focal bilateral striatocapsular lacunar insults (history of the caudate and adjacent putamina). Signed by: Dr. Justice Melchor M.D. on 06/15/2019 12:21 PM
--- OUTSIDE RECORDS SUMMARY | 2019-06-15 12:40 | XMS REPORT | Clinical Summary ---
Author Author [facility] Organization [facility] Address Unknown Phone Unavailable Care Team Providers Care Physician Specialist Name Role Phone Oscar Pierson MD PCP [...] Lot Implanted Type Area Manufactur er 09/28/2027 [id number] / / [id number] Stem Fml Pors Coat Std Ti #14 160mm Hip Joint Left: Hip KAUR AND Synergy - [id number] Implants NEPHEW Implanted: Qty: 1 on 01/09/2018 by ORTHOPEDIC Trenton Glaser MD S 02/20/2027 [id number] / / [id number] Head Unipol Implant Cob-Chr 46mm Hip Joint Left: Hip KAUR AND Tandem - [id number] Implants NEPHEW Implanted: Qty: 1 on 01/09/2018 by ORTHOPEDIC Trenton Glaser MD S 05/12/2027 [id number] / / [id number] Sleeve Hip 12/14 Tprd Unipol +8mm Hip Joint Left: Hip KAUR AND Tandem - [id number] Implants NEPHEW Implanted: Qty: 1 on 01/09/2018 by ORTHOPEDIC Trenton Glaser MD S Results Not on fileafter 06/14/2018 Insurance Type Payer Benefit Subscriber ID Effective Phone Address Plan / Dates Group HMO TEXAN[employer]US TEXANPLUS xxxxxxxxx 2015-P JAIRO deal Advance Directives Patient has advance care planning documents, and code status on file. For more i nformation, please contact: Anibal Bowles [address] [place] [address] Date Inactivated Comments Code Status Date Activated 01/09/2018 6:18 PM Full Code 01/09/2018 9:12 AM Code Status decision reached by: Patient
[2019-06-15] MEDS ORDERED: VANCOMYCIN 1GM/NS 250 ML 250 ML IV ONE (13:30)
--- NOTE | 2019-06-15 13:40 | NUR ---
NOTIFIED DR ADAMS BP 90/51, P 83 AFTER 1L NS BOLUS VERBAL ORDER RECEIVED FOR 1L NS BOLUS
[2019-06-15] MEDS ORDERED: SODIUM CHLORIDE 0.9% 1000ML 1,000 ML ONE (13:46)
[2019-06-15] MEDS: SODIUM CHLORIDE 0.9% 1000ML 1,000 ML IV SCH ×2 (14:10→17:26)
[2019-06-15] MEDS ORDERED: MONTELUKAST SOD10 MG PO (16:09)
[2019-06-15] MEDS ORDERED: PLAVIX75 MG PO (16:09)
[2019-06-15] MEDS ORDERED: MIRAPEX1 MG PO (16:09)
[2019-06-15 16:45] VITALS: BP 107/81
--- NOTE | 2019-06-15 16:45 | NUR ---
Pt arrived from ER at this time. Pt is aaox4 and able to verbalize needs. Pt is being admitted for syncope, anemia. Pt denies any syncope at this time. Breaths are even and unlabored on room air.
[2019-06-15 16:52] VITALS: BP 107/81
[2019-06-15 19:24] LABS: CREATINE KINASE 85 IU/L (29-168)
[2019-06-15] MEDS ORDERED: VENTOLIN HFA18 GM (19:27)
[2019-06-15] MEDS ORDERED: trelegy PO (19:27)
[2019-06-15 20:00] VITALS: BP 120/58
--- NOTE | 2019-06-15 20:15 | NUR ---
PATIENT IS IN STABLE CONDITION, NO SIGNS OF DISTRESS NOTED. COMPLAINS OF NO PAIN AT THIS TIME, CALL LIGHT IS WITHIN REACH, BED IS LOCKED, WILL CONTINUE TO MONITOR.
--- NOTE | 2019-06-15 22:00 | NUR ---
PATIENT COMPLAINED OF LEG PAIN AND SAYS SHE SUFFERS FROM RLS AND HAS BEEN IN PAIN FOR A WHILE. VOICED THAT SHE WISHED SHE HAD TOLD ME WHEN I HAD ASKED EARLIER. PAGED DR. OLGUIN FOR MEDICATIONS ORDERS AND PATIENT WAS MEDICATED ORDERED. WILL CONTINUE TO MONITOR.
[2019-06-15] MEDS ORDERED: PRAMIPEXOLE DIHYDROCHLORIDE 0.25 MG TAB PO ONE (22:15)
[2019-06-15 23:37] VITALS: BP 120/58
[2019-06-16] VITALS (7 sets, daily range): BP systolic 124–140; BP diastolic 60–70
[2019-06-16] MEDS: CEFEPIME 2 GM/NS 0.9% 100 ML 100 ML IV SCH ×2 (01:37→13:50)
--- NOTE | 2019-06-16 05:00 | NUR ---
PATIENT ACCIDENTLY DISLODGED IV FROM SITE. SITE WAS REPLACED IN LEFT FOREARM, IT IS PATENT AND FLOWING. PATIENT NOW SHOWERING WILL CONTINUE TO MONITOR.
[2019-06-16 05:53] LABS: BASOPHILS # (AUTO) 0.1 (0.0-0.1); BASOPHILS % 0.6 % (0.0-1.0); EOSINOPHILS # (AUTO) 0.4 (0.0-0.4); EOSINOPHILS % 3.9 % (0.0-6.0); HEMATOCRIT 29.8 % (34.2-44.1); HEMOGLOBIN 8.8 g/dL (12.0-16.0); LYMPHOCYTES # (AUTO) 2.4 (1.0-3.2); LYMPHOCYTES % 25.2 % (18.0-39.1); MEAN CORPUSCULAR HGB CONC 29.5 g/dL (31-35); MEAN CORPUSCULAR VOLUME 88.2 fL (81-99); MONOCYTES # (AUTO) 1.2 (0.2-0.8); MONOCYTES % 12.1 % (4.4-11.3); NEUTROPHILS # (AUTO) 5.6 (2.1-6.9); NEUTROPHILS % 57.9 % (38.7-80.0); PLATELET COUNT 263 x10e3/uL (140-360); RED BLOOD COUNT 3.38 x10e6/uL (3.6-5.1); RED CELL DISTRIBUTION WIDTH 17.2 % (11.7-14.4)
[2019-06-16 06:06] LABS: ANION GAP 10.7 mmol/L (8-16); BLOOD UREA NITROGEN 6 mg/dL (7-26); BUN/CREATININE RATIO 9 (6-25); CALCIUM 10.4 mg/dL (8.4-10.2); CARBON DIOXIDE 23 mmol/L (22-29); CHLORIDE 111 mmol/L (98-107); CREATININE, SERUM 0.66 mg/dL (0.57-1.11); EST GLOMERULAR FILTRATION RATE > 60 ML/MIN (60-); GLUCOSE 93 mg/dL (74-118); POTASSIUM 3.7 mmol/L (3.5-5.1); SODIUM 141 mmol/L (136-145)
[2019-06-16 06:40] LABS: CREATINE KINASE MB 5.6 ng/mL (0-5.0)
[2019-06-16] MEDS: CLOPIDOGREL BISULFATE 75 MG TAB PO SCH (08:26)
[2019-06-16] MEDS: MONTELUKAST SODIUM 10 MG TAB PO SCH (08:26)
[2019-06-16] MEDS: PANTOPRAZOLE SOD 40 MG TABEC PO SCH (08:26)
[2019-06-16] MEDS ORDERED: ALBUTEROL/IPRATROPIUM 3 ML NEB NEB PRN (09:15)
--- NOTE | 2019-06-16 09:38 | History and Physical ---
CHIEF COMPLAINT: Generalized weakness, cough, low-grade fever, and near syncope. HISTORY OF PRESENT ILLNESS: The patient is a 73-year-old female with chronic anemia, had multiple workup in the past including last year colonoscopy. The patient has history of advanced lung cancer. The patient has been getting chemotherapy every other Saturday. She came in this time with increasing weakness, dizziness, and near syncopal episode associated with increasing cough. The patient is otherwise stable. PAST MEDICAL HISTORY: Lung cancer, smoker, dyslipidemia, reflux, chronic anemia. PAST SURGICAL HISTORY: Hysterectomy. SOCIAL HISTORY: The patient is a heavy smoker for years. ALLERGIES: NO KNOWN ALLERGIES. HOME MEDICATIONS: List reviewed. REVIEW OF SYSTEMS: Increasing cough, shortness of breath, anemia. PHYSICAL EXAMINATION: VITAL SIGNS: Temperature is 98, blood pressure 134/67, pulse rate 79, respiration 18. GENERAL: The patient is not in acute distress. She is coughing, weakness. HEENT: Normocephalic, atraumatic. Pupils reactive. Anicteric. NECK: Supple grossly. PULMONARY: Bilateral coarse. CARDIOVASCULAR: S1, S2. Regular rate and rhythm. ABDOMEN: Soft. EXTREMITIES: No cyanosis or edema. NEUROLOGIC: No focal deficit. IMAGING STUDIES: Chest x-ray show focal airspace opacity of the peripheral left lung base consistent with possible pneumonia. ASSESSMENT AND PLAN: 1. Pneumonia, most likely. 2. Baseline lung cancer, getting chemotherapy. 3. Generalized weakness. 4. Chronic anemia. 5. Heavy smoker with chronic obstructive pulmonary disease with acute exacerbation. PLAN: Nebulizer, antibiotics. Continue with home medication. We will obtain CT scan of the chest without contrast to document the severity of the pneumonia. DVT prophylaxis. MD LATOYA Culver/BRENDAN /[id number]
--- NOTE | 2019-06-16 10:30 | Diagnostic Imaging Report ---
EXAMINATION: CHEST SINGLE (PORTABLE) INDICATION: Weakness COMPARISON: Chest radiograph of 06/15/2019 FINDINGS: LINES/TUBES:Left chest port with catheter tip in the superior vena cava. EKG leads overlie the chest. LUNGS:The lungs are moderately inflated. Focal airspace opacity at the peripheral left lung base. Mild right basilar subsegmental atelectasis. PLEURA:Likely trace left pleural effusion. No pneumothorax. MEDIASTINUM:The cardiomediastinal silhouette appears normal in size and shape. Atherosclerotic calcifications of the thoracic aorta. BONES/SOFT TISSUES:No acute osseous injury. ABDOMEN:No free air under the diaphragm. IMPRESSION: Unchanged airspace opacity at the peripheral left lung base is consistent with pneumonia in the proper clinical setting. Mild subsegmental atelectasis at the right lung base. RECOMMENDATIONS: Follow-up chest radiograph in 6-8 weeks to ensure resolution and exclude underlying lung mass. Signed by: Surjit Suggs MD on 06/16/2019 10:27 AM
[2019-06-16] MEDS: SODIUM CHLORIDE 0.45% 1,000 ML IV SCH (11:03)
[2019-06-16] MEDS: AZITHROMYCIN 500MG/NS 250 ML 250 ML IV SCH (11:46)
[2019-06-16] MEDS: ALBUTEROL/IPRATROPIUM 3 ML NEB NEB SCH ×2 (13:00→19:00)
[2019-06-16] MEDS: BENZONATATE 100 MG CAP PO PRN ×2 (13:48→23:51)
--- NOTE | 2019-06-16 14:48 | Diagnostic Imaging Report ---
EXAM: CT Chest WITHOUT intravenous contrast 06/16/2019 9:06 AM INDICATION: Cough COMPARISON: Chest radiograph of 06/15/2019 and a 2018 TECHNIQUE: Chest was scanned utilizing a multidetector helical scanner from the lung apex through the level of the adrenal glands without administration of IV contrast. Coronal and sagittal reformations were obtained. Routine protocol was performed. IV CONTRAST: None RADIATION DOSE: Total DLP: 460.6 mGy*cm. Dose modulation, iterative reconstruction, and/or weight based adjustment of the mA/kV was utilized to reduce the radiation dose to as low as reasonably achievable. COMPLICATIONS: None FINDINGS: LINES/ TUBES: Left chest port with catheter tip in the superior vena cava. LUNGS AND AIRWAYS: The central airways are patent. There is diffuse bilateral centrilobular emphysema with bullous emphysema at the left lower lobe. There is a 3.8 x 2.7 cm masslike consolidation in the peripheral left lower lobe. Spiculated left upper lobe 2.0 cm nodule (series 3 image 55). 7 mm right upper lobe pulmonary nodule (series 3 image 64). 2.4 cm spiculated right lower lobe pulmonary nodule (series 3 image 88). Right lower lobe subcentimeter calcified granuloma. Multiple other scattered pulmonary nodules measuring less than 5 mm. PLEURA: Small bilateral pleural effusions left greater than right. No pneumothorax. HEART AND MEDIASTINUM: Normal thyroid gland. No supraclavicular lymphadenopathy. 12 mm aortopulmonary window lymph node. No definite hilar lymphadenopathy. No axillary, subpectoral, or internal mammary lymphadenopathy. The heart is not enlarged. No pericardial effusion. Atherosclerotic coronary artery calcifications and atherosclerotic thoracic aortic calcifications. UPPER ABDOMEN: Limited non-contrast views of the upper abdomen show no abnormality within the visualized liver, spleen, pancreas, or kidneys. The adrenal glands are normal. BONES: No acute osseous injury. No suspicious lytic or blastic lesions. Mild degenerative changes of the visualized spine. SOFT TISSUES: Incidental note made of bilateral saline breast implants. IMPRESSION: Left lower lobe dominant mass and spiculated nodules in the left upper lobe, right upper lobe and right lower lobe are consistent with patient's known history of lung cancer. The left lower lobe component may involve a superimposed infection in the patient's current setting of fever and cough. Comparison with prior cross sectional imaging if available would be helpful. Signed by: Surjit Suggs MD on 06/16/2019 2:44 PM
--- NOTE | 2019-06-16 15:35 | NUR ---
Visit made by the Spiritual Care Department Pastoral Visitor, Salome Forbes. Pt sleeping soundly and no family present. Pastoral Visitor left a card describing availability of music internship and instructions on how to contact a music internship. PHYLLIS HECK Marketing Operations Analyst Spiritual Care Department O: [phone] Pager: [phone] ([phone] number calling from)
--- NOTE | 2019-06-16 16:57 | NUR ---
Nutrition Screen Note RD Recommendation for Physician: -Continue diet as ordered Plan of Care: RD following, monitoring for tolerance and adequacy Nutrition reason for involvement: Nutrition Risk Trigger MST Primary Diagnose(s): 1. Pneumonia, most likely. 2. Baseline lung cancer, getting chemotherapy. 3. Generalized weakness. 4. Chronic anemia. 5. Heavy smoker with chronic obstructive pulmonary disease with acute exacerbation. PMH: Lung cancer, smoker, dyslipidemia, reflux, chronic anemia Ht: 63in Wt: 134.02lb BMI: 23.7kg/m2 IBW: 115lb +/- 10% RD Assessment: (06/16) Chart reviewed. Labs and meds reviewed. 73yo F, who was admitted for increasing weakness, dizziness, and near syncopal episode associated with increasing cough. Pt with lung cancer, on chemotherapy. Visited pt in the room. Per family, pt has had poor appetite in the last 2-3 days. No complain of nausea or vomiting. Pt denied any chewing or swallowing difficulty. LBM - 06/16. Weight has been stable. Discussed menu options with pt and family. Obtained food preferences. Pt was not interested in any oral nutrition supplements. Current Diet: cardiac diet Malnutrition Evaluation (06/16/2019) The patient does not meet criteria for a specified degree of malnutrition at this time. Will re-evaluate at follow-up as appropriate. Diet Education Needs Assessment: Diet education not indicated. Nutrition Care Level: low Signed: Bonita Perez, MS, RD, LD
[2019-06-16] MEDS ORDERED: PRAMIPEXOLE DIHYDROCHLORIDE 1 MG TAB PO SCH (17:00)
--- NOTE | 2019-06-16 18:00 | NUR ---
Pt in bed. Aox3 and able to verbalize needs . Denies any pain at this time. Denies dizziness.
[2019-06-16] MEDS: ATORVASTATIN 20 MG TAB PO SCH (20:23)
[2019-06-16] MEDS: PRAMIPEXOLE DIHYDROCHLORIDE 1 MG TAB PO SCH (20:23)
--- NOTE | 2019-06-16 23:28 | NUR ---
Dr. Rubi called and notified of stool occult blood results, no new orders
[2019-06-17] VITALS (8 sets, daily range): BP systolic 129–185; BP diastolic 60–95
[2019-06-17] MEDS: CEFEPIME 2 GM/NS 0.9% 100 ML 100 ML IV SCH ×2 (00:57→13:01)
[2019-06-17] MEDS: ALBUTEROL/IPRATROPIUM 3 ML NEB NEB SCH ×4 (01:00→18:32)
[2019-06-17] MEDS: SODIUM CHLORIDE 0.45% 1,000 ML IV SCH ×2 (04:05→11:56)
[2019-06-17 05:44] LABS: BASOPHILS # (AUTO) 0.1 (0.0-0.1); BASOPHILS % 0.5 % (0.0-1.0); EOSINOPHILS # (AUTO) 0.4 (0.0-0.4); EOSINOPHILS % 3.3 % (0.0-6.0); HEMATOCRIT 28.1 % (34.2-44.1); HEMOGLOBIN 8.5 g/dL (12.0-16.0); LYMPHOCYTES # (AUTO) 2.1 (1.0-3.2); LYMPHOCYTES % 20.5 % (18.0-39.1); MEAN CORPUSCULAR HEMOGLOBIN 25.9 pg (28-32); MEAN CORPUSCULAR HGB CONC 30.2 g/dL (31-35); MEAN CORPUSCULAR VOLUME 85.7 fL (81-99); MONOCYTES # (AUTO) 1.2 (0.2-0.8); MONOCYTES % 11.4 % (4.4-11.3); NEUTROPHILS # (AUTO) 6.7 (2.1-6.9); PLATELET COUNT 220 x10e3/uL (140-360); RED BLOOD COUNT 3.28 x10e6/uL (3.6-5.1); RED CELL DISTRIBUTION WIDTH 17.2 % (11.7-14.4)
[2019-06-17 06:01] LABS: ANION GAP 12.6 mmol/L (8-16); BLOOD UREA NITROGEN 7 mg/dL (7-26); BUN/CREATININE RATIO 11 (6-25); CALCIUM 10.4 mg/dL (8.4-10.2); CARBON DIOXIDE 22 mmol/L (22-29); CHLORIDE 113 mmol/L (98-107); CREATININE, SERUM 0.62 mg/dL (0.57-1.11); EST GLOMERULAR FILTRATION RATE > 60 ML/MIN (60-); GLUCOSE 83 mg/dL (74-118); POTASSIUM 3.6 mmol/L (3.5-5.1); SODIUM 144 mmol/L (136-145)
--- NOTE | 2019-06-17 07:00 | NUR ---
BEDSIDE SHIFT REPORT RECEIVED FROM WILFREDO CEJA. PT DENIES NEEDS AT THIS TIME.
[2019-06-17] MEDS: MONTELUKAST SODIUM 10 MG TAB PO SCH (08:55)
[2019-06-17] MEDS: CLOPIDOGREL BISULFATE 75 MG TAB PO SCH (08:55)
[2019-06-17] MEDS: PANTOPRAZOLE SOD 40 MG TABEC PO SCH (08:55)
--- NOTE | 2019-06-17 11:09 | NUR ---
EDUCATED ABOUT IMM, SIGNED, FILED IN CHART, WITH COPY LEFT WITH FAMILY AT BEDSIDE.
[2019-06-17] MEDS: AZITHROMYCIN 500MG/NS 250 ML 250 ML IV SCH (12:04)
--- NOTE | 2019-06-17 21:01 | NUR ---
RECEIVED PT SITTING ON THE CHAIR .DENIES PAIN RESPIRATIONS ARE EVEN AND UNLABORED .TELE 9 SHOWS SR .CALL LIGHT WITH IN REACH CONTINUE TO MONITOR
[2019-06-17] MEDS: PRAMIPEXOLE DIHYDROCHLORIDE 1 MG TAB PO SCH (21:15)
[2019-06-17] MEDS: ATORVASTATIN 20 MG TAB PO SCH (21:15)
[2019-06-17] MEDS: BENZONATATE 100 MG CAP PO PRN (22:15)
[2019-06-18] VITALS (8 sets, daily range): BP systolic 112–146; BP diastolic 55–78
[2019-06-18] MEDS: ALBUTEROL/IPRATROPIUM 3 ML NEB NEB SCH ×4 (00:15→19:05)
[2019-06-18] MEDS: SODIUM CHLORIDE 0.45% 1,000 ML IV SCH ×2 (01:15→14:35)
[2019-06-18] MEDS: CEFEPIME 2 GM/NS 0.9% 100 ML 100 ML IV SCH ×2 (01:23→13:00)
--- NOTE | 2019-06-18 01:54 | Consultation ---
DATE OF CONSULTATION: CHIEF COMPLAINT: Anemia. HISTORY OF PRESENT ILLNESS: This is a very pleasant 73-year-old lady with history of chronic anemia, multiple workup including last year colonoscopy. She is hemoccult positive. She is on chemotherapy for stage 4 lung cancer. Denies gross bleeding per rectum. No hematemesis, hematochezia, or melena. PAST MEDICAL HISTORY: Lung cancer, chronic anemia. PAST SURGICAL HISTORY: Hysterectomy. SOCIAL HISTORY: Denies history of smoking. ALLERGIES: NOT SIGNIFICANT. MEDICATIONS: See list. REVIEW OF SYSTEMS: Some weakness, otherwise negative. PHYSICAL EXAMINATION: VITAL SIGNS: Blood pressure 140/80, pulse 80, and temperature 98.7. GENERAL: Well-nourished, pale, white lady, in no distress. HEENT: Some pallor. HEART: Regular rate. LUNGS: Clear. ABDOMEN: Soft and nontender. EXTREMITIES: No edema. ASSESSMENT AND PLAN: Anemia, multifactorial, related to anemia of chronic disease; chemotherapy; B12 deficiency, less likely iron deficiency. She had a colonoscopy last year. At the present time, I will follow closely. No need for emergent EGD at this point, especially with all her medical problems. I will definitely recommend iron supplements in addition to B12 shots. MD JOSE M Malave/BRENDAN /[id number]
[2019-06-18 05:42] LABS: BASOPHILS % 0.4 % (0.0-1.0); EOSINOPHILS # (AUTO) 0.2 (0.0-0.4); EOSINOPHILS % 1.7 % (0.0-6.0); HEMATOCRIT 26.5 % (34.2-44.1); HEMOGLOBIN 7.9 g/dL (12.0-16.0); LYMPHOCYTES # (AUTO) 1.6 (1.0-3.2); LYMPHOCYTES % 14.8 % (18.0-39.1); MEAN CORPUSCULAR HEMOGLOBIN 25.8 pg (28-32); MEAN CORPUSCULAR HGB CONC 29.8 g/dL (31-35); MEAN CORPUSCULAR VOLUME 86.6 fL (81-99); MONOCYTES # (AUTO) 1.3 (0.2-0.8); MONOCYTES % 11.8 % (4.4-11.3); NEUTROPHILS # (AUTO) 7.6 (2.1-6.9); PLATELET COUNT 183 x10e3/uL (140-360); RED BLOOD COUNT 3.06 x10e6/uL (3.6-5.1); RED CELL DISTRIBUTION WIDTH 17.2 % (11.7-14.4)
--- NOTE | 2019-06-18 06:21 | NUR ---
PT RESTING AND DENIES PAIN .CALL LIGHT WITH IN REACH .CONTINUE TO MONITOR
[2019-06-18 06:44] LABS: PLATELET MORPHOLOGY COMMENT FEW EDTA CLUMPING
[2019-06-18 06:45] LABS: PLATELET ESTIMATE ADEQUATE
--- NOTE | 2019-06-18 07:00 | NUR ---
BEDSIDE SHIFT REPORT RECEIVED FROM FIELD RESEARCH ASSISTANT RN. PT DENIES NEEDS AT THIS TIME.
[2019-06-18] MEDS ORDERED: ACETAMINOPHEN 325 MG TAB PO STA (09:10)
[2019-06-18] MEDS: PANTOPRAZOLE SOD 40 MG TABEC PO SCH (09:14)
[2019-06-18] MEDS: MONTELUKAST SODIUM 10 MG TAB PO SCH (09:14)
[2019-06-18] MEDS ORDERED: FAMOTIDINE 20 MG/2 ML VIAL IV ONE (09:15)
[2019-06-18] MEDS ORDERED: DIPHENHYDRAMINE HCL INJ 50 MG/ML VIAL IV ONE (09:15)
[2019-06-18] MEDS: CYANOCOBALAMIN INJ 1,000 MCG/ML VIAL IM SCH (09:48)
[2019-06-18] MEDS ORDERED: SODIUM CHLORIDE 0.9% 250ML 250 ML IV ONE (10:00)
[2019-06-18] MEDS ORDERED: ONDANSETRON HCL 4 MG ORAL DISINTEGRATING TAB PO PRN (10:00)
[2019-06-18] MEDS: IRON SUCROSE 100 MG in SODIUM CHLORIDE 0.9% 100 ML 100 ML IV SCH (10:00)
[2019-06-18] MEDS: BENZONATATE 100 MG CAP PO PRN (11:32)
[2019-06-18] MEDS ORDERED: SODIUM CHLORIDE 0.9% 250ML 250 ML ONE (13:59)
--- NOTE | 2019-06-18 19:00 | NUR ---
REPORT OF BLOOD TRANSFUSION GIVEN TO PAVAN. THIS RN WILL FINISH FINAL TRANSFUSIONIST.
--- NOTE | 2019-06-18 19:52 | NUR ---
RECEIVE DPT IN BED RECEIVED PT IN BED AOX3 RECEIVING BLOOD .NO ACUTE DISTRESS NOTED CALL LIGHT WITH IN REACH .CONTINUE TO MONITOR .CALL LIGHT WITH IN REACH
[2019-06-18] MEDS: PRAMIPEXOLE DIHYDROCHLORIDE 1 MG TAB PO SCH (20:00)
[2019-06-18] MEDS: ATORVASTATIN 20 MG TAB PO SCH (21:00)
[2019-06-19] VITALS (8 sets, daily range): BP systolic 122–134; BP diastolic 57–64
[2019-06-19] MEDS: CEFEPIME 2 GM/NS 0.9% 100 ML 100 ML IV SCH ×2 (01:30→13:00)
[2019-06-19] MEDS: ACETAMINOPHEN 325 MG TAB PO PRN ×2 (01:31→04:57)
[2019-06-19] MEDS: AZITHROMYCIN 500MG/NS 250 ML 250 ML IV SCH (01:31)
[2019-06-19 05:49] LABS: BASOPHILS % 0.4 % (0.0-1.0); EOSINOPHILS # (AUTO) 0.3 (0.0-0.4); EOSINOPHILS % 3.3 % (0.0-6.0); HEMATOCRIT 33.7 % (34.2-44.1); HEMOGLOBIN 10.9 g/dL (12.0-16.0); LYMPHOCYTES # (AUTO) 2.2 (1.0-3.2); MEAN CORPUSCULAR HEMOGLOBIN 26.8 pg (28-32); MEAN CORPUSCULAR HGB CONC 32.3 g/dL (31-35); MEAN CORPUSCULAR VOLUME 82.8 fL (81-99); MONOCYTES # (AUTO) 1.5 (0.2-0.8); MONOCYTES % 15.1 % (4.4-11.3); NEUTROPHILS # (AUTO) 5.9 (2.1-6.9); PLATELET COUNT 175 x10e3/uL (140-360); RED BLOOD COUNT 4.07 x10e6/uL (3.6-5.1); RED CELL DISTRIBUTION WIDTH 16.9 % (11.7-14.4)
[2019-06-19 06:07] LABS: BLOOD UREA NITROGEN 6 mg/dL (7-26); BUN/CREATININE RATIO 9 (6-25); CALCIUM 9.8 mg/dL (8.4-10.2); CARBON DIOXIDE 25 mmol/L (22-29); CHLORIDE 111 mmol/L (98-107); CREATININE, SERUM 0.66 mg/dL (0.57-1.11); EST GLOMERULAR FILTRATION RATE > 60 ML/MIN (60-); GLUCOSE 87 mg/dL (74-118); SODIUM 144 mmol/L (136-145)
[2019-06-19] MEDS: SODIUM CHLORIDE 0.45% 1,000 ML IV SCH (06:13)
--- NOTE | 2019-06-19 06:17 | NUR ---
PT RESTED DURING THE NIGHT AND DENIES PAIN .CALL LIGHT. WITH IN REACH .CONTINUE TO MONITOR
--- NOTE | 2019-06-19 06:18 | NUR ---
PT HAD 2 UNIT OF BLOOD .NO REACTION NOTED .CALL LIGHT WITH IN REACH .CONTINUE TO MONITOR
--- NOTE | 2019-06-19 07:00 | NUR ---
BEDSIDE SHIFT REPORT RECEIVED FROM CLOTH FRAMER RN. PT DENIES NEEDS AT THIS TIME.
--- NOTE | 2019-06-19 07:16 | NUR ---
BEDSIDE REPORT GIVEN TO THE ONCOMING NURSE
[2019-06-19] MEDS: ALBUTEROL/IPRATROPIUM 3 ML NEB NEB SCH ×4 (07:19→19:00)
[2019-06-19 08:21] LABS: EOSINOPHILS % (MANUAL) 4 % (0-7); LYMPHOCYTES % (MANUAL) 18 % (19-48); MONOCYTES % (MANUAL) 7 % (3.4-9.0); NEUTROPHILS % (MANUAL) 71 % (40-74)
[2019-06-19 08:22] LABS: RBC MORPHOLOGY COMMENT NORMAL
[2019-06-19 08:23] LABS: PLATELET ESTIMATE ADEQUATE; PLATELET MORPHOLOGY COMMENT NORMAL
[2019-06-19] MEDS ORDERED: POTASSIUM CHLORIDE 10MEQ EA PO ONE (09:15)
[2019-06-19] MEDS: CYANOCOBALAMIN INJ 1,000 MCG/ML VIAL IM SCH (09:37)
[2019-06-19] MEDS: PANTOPRAZOLE SOD 40 MG TABEC PO SCH (09:37)
[2019-06-19] MEDS: MONTELUKAST SODIUM 10 MG TAB PO SCH (09:37)
[2019-06-19] MEDS: IRON SUCROSE 100 MG in SODIUM CHLORIDE 0.9% 100 ML 100 ML IV SCH (10:00)
--- NOTE | 2019-06-19 12:54 | NUR ---
EDUCATED ABOUT IMM, SIGNED, FILED IN CHART, WITH COPY LEFT WITH FAMILY AT BEDSIDE.
[2019-06-19] MEDS: PRAMIPEXOLE DIHYDROCHLORIDE 1 MG TAB PO SCH (20:00)
[2019-06-19] MEDS: ATORVASTATIN 20 MG TAB PO SCH (21:00)
--- NOTE | 2019-06-19 23:24 | NUR ---
BS rounds completed with morning nurse. Pt alert and orient to name. Lying in bed with HOB 45 degrees. Pt denies pain at this time. Family at bedside. Call grajeda within reach. Will continue to monitor.
[2019-06-20] VITALS (9 sets, daily range): BP systolic 124–142; BP diastolic 58–75
[2019-06-20] MEDS ORDERED: SODIUM CHLORIDE 0.9% 250ML 250 ML ONE (00:21)
[2019-06-20] MEDS: CEFEPIME 2 GM/NS 0.9% 100 ML 100 ML IV SCH ×2 (00:26→13:00)
[2019-06-20] MEDS: AZITHROMYCIN 500MG/NS 250 ML 250 ML IV SCH (01:00)
--- NOTE | 2019-06-20 06:30 | NUR ---
PT LYING IN BED QUIETLY WITH EYES CLOSED. RR EVEN AND UNLABORED, 18. NO ACUTE DISTRESS NOTED.
--- NOTE | 2019-06-20 07:00 | NUR ---
Pt received resting in bed. Alert and oriented x4, on O2 2L NC. Pt stated that she is for discharge today. Oriented to staff and surroundings. Encouraged to press call grajeda if help needed. Call grajeda within reach. Will monitor
[2019-06-20] MEDS: ALBUTEROL/IPRATROPIUM 3 ML NEB NEB SCH ×4 (07:20→18:48)
--- NOTE | 2019-06-20 09:30 | NUR ---
All meds given as ordered. Call grajeda within reach. Will monitor
[2019-06-20] MEDS: MONTELUKAST SODIUM 10 MG TAB PO SCH (09:34)
[2019-06-20] MEDS: CYANOCOBALAMIN INJ 1,000 MCG/ML VIAL IM SCH (09:34)
[2019-06-20] MEDS: PANTOPRAZOLE SOD 40 MG TABEC PO SCH (09:34)
[2019-06-20] MEDS: IRON SUCROSE 100 MG in SODIUM CHLORIDE 0.9% 100 ML 100 ML IV SCH (10:00)
--- NOTE | 2019-06-20 10:45 | NUR ---
ORDER RECEIVED FOR HOME O2. MET W THE PT AT THE BEDSIDE. PROVIDED CHOICE. [facility] CHOICE LETTER WAS SIGNED AND COPY TO PT AND COPY TO CHART. REFERRAL WAS FAXED TO YULIYA @ [phone]. NOTIFIED LIASON; REBECCA AT [phone].
--- NOTE | 2019-06-20 12:04 | NUR ---
Awaiting home oxygen to be delivered. Pt has discharge order. Will monitor
[2019-06-20] MEDS ORDERED: SODIUM CHLORIDE 0.9% 50ML 0 ML ONE (12:22)
--- NOTE | 2019-06-20 12:30 | NUR ---
CALL RECEIVED X2 FROM [employer]OST[employer] DWYER TO VERIFY PT'S INSURANCE. STATES SHE WAS NOT SHOWING ACTIVE. FAXED COPY OF INSURANCE CARD TO KOSTA.
--- NOTE | 2019-06-20 13:29 | NUR ---
RECEIVED CALL FROM [facility]ISS [facility]. STATES THEY WILL SEND TANKS TO THE PT. NO ETA GIVEN. PT WAS NOTIFIED. Addendum: 06/20/19 at 1337 by Pratibha Maria CALL BACK FROM [employer] STATING SHE IS NOT ABLE TO DEISPENSE TANKS W/O AN AUTH FROM INSURANCE. NOTIFIED BS NURSE. CALL PLACED TO [facility].
--- NOTE | 2019-06-20 13:47 | NUR ---
PT AND NURSE UPDATED ON STATUS OF HOME O2. SPOKE W REBECCA BORJA. STATES HE WILL PUSH FOR O2 TO BE DELIVERED. BEDSIDE NURSE HAS [facility]'S CONTACT INFO.
--- NOTE | 2019-06-20 15:00 | NUR ---
Spoke to Oxygen rep regarding ETA for O2 tank. Rep stated that he did not get authorization from insurance. Rep will try again tomorrow. Dr. Rubi notified. Discharge will be held until tomorrow. Pt informed. Emotional support given. Will monitor
--- NOTE | 2019-06-20 15:44 | Discharge Summary ---
PRIMARY CARE PHYSICIAN: Oscar Pierson MD. PCAT INSTRUCTOR: Kelvin Pradhan MD FINAL DIAGNOSES: 1. Community-acquired pneumonia. 2. Baseline lung cancer stage IV, undergoing chemotherapy. 3. Chronic anemia with diverticulosis, status post 2 units of blood transfusion. 4. Generalized weakness, improving. SUMMARY: A 73-year-old female with lung cancer, baseline stage IV lung cancer with increasing shortness of breath. The patient is oxygen-dependent. She came in with acute exacerbation of COPD and pneumonia. The patient was on antibiotic, treated. She also had hemoglobin and hematocrit of 8.2 and 29.8. The patient was on Plavix. She also has stool for occult blood positive, but because of her advanced stage lung cancer, no endoscopy was done by Dr. Kelvin Pradhan. The patient has received 2 units of blood transfusion. She had endoscopy last year with diverticulosis. The patient is stable now. She is comfortable. She has significant improvement. She had more strength. She will go home today and follow up with her oncologist to continue with her lung cancer treatment. She will be discharged home. 1. Resume home medication. 2. Stop Plavix. 3. Doxycycline monohydrate twice a day for 7 days and Tessalon Perles 100 mg q.4 hours as needed for cough. The patient is stable and discharged home today. Follow up with Dr. Oscar Pierson in approximately one week. MD LATOYA Culver/SHAHRIARL /[id number]
--- NOTE | 2019-06-20 18:15 | Progress Note ---
DATE: 06/20/2019 SUBJECTIVE: Ms. Ratliff is doing well. She denies any significant GI symptoms. PHYSICAL EXAMINATION: Unremarkable. Abdomen was soft and benign. LABORATORY DATA: Yesterday, hemoglobin was stable at 10.9, hematocrit was 33, white count was 10,000, and platelet count was 175. Stool hemoccult was positive. ASSESSMENT: A 73-year-old female with lung cancer, status post recent chemotherapy, admitted with mild degree of normocytic anemia that has responded well. There were no overt signs of bleeding. The patient had been seen by Dr. Dixon approximately 2 days ago. It was decided that based on her recent chemotherapy, anemia could be probably multifactorial. PLAN: 1. Continue PPI. 2. From a GI point of view, probably she could be discharged. Endoscopic intervention, probably at this point is not warranted. MD MODE Yuan/BRENDAN /[id number]
--- NOTE | 2019-06-20 19:05 | NUR ---
BS rounds completed with morning nurse. Pt alert and orient to name. Sitting in bed. Bilateral 18g ac IV right Protonix @8ml/hr, left NS @100. Denies pain at this time. Family at bedside. Call grajeda within reach. Will continue to monitor.
--- NOTE | 2019-06-20 19:20 | NUR ---
Pt resting in bed. Handoff given to production supervisor off shift RN
--- NOTE | 2019-06-20 20:30 | NUR ---
Nursing assessment completed. Pt alert to name, place, time, and diagnosis: Hypotension. Skin warm, dry, scaly, and thin. Sacrum redness, stage I. Denies pain or discomfort at this time. O2 @2L via nc. Lungs diminished in RLL, LLL. Cap refill immediate. Per Pt last BM Thurs 06/21 brown and loose. Pt c/o urinary frequency, with some incontinent episodes. No acute distress noted. Call grajeda within reach. Bed low and locked. Will continue to monitor. Addendum: 06/21/19 at 0337 by Otto Nunes RN wrong chart
[2019-06-20] MEDS: ATORVASTATIN 20 MG TAB PO SCH (20:45)
[2019-06-20] MEDS: PRAMIPEXOLE DIHYDROCHLORIDE 1 MG TAB PO SCH (20:45)
[2019-06-21] VITALS (8 sets, daily range): BP systolic 108–161; BP diastolic 53–70
[2019-06-21] MEDS: ALBUTEROL/IPRATROPIUM 3 ML NEB NEB SCH ×4 (00:24→18:55)
[2019-06-21] MEDS: CEFEPIME 2 GM/NS 0.9% 100 ML 100 ML IV SCH ×2 (00:53→15:14)
[2019-06-21] MEDS: AZITHROMYCIN 500MG/NS 250 ML 250 ML IV SCH (01:35)
[2019-06-21] MEDS: CYANOCOBALAMIN INJ 1,000 MCG/ML VIAL IM SCH (12:19)
[2019-06-21] MEDS: PANTOPRAZOLE SOD 40 MG TABEC PO SCH (12:19)
[2019-06-21] MEDS: IRON SUCROSE 100 MG in SODIUM CHLORIDE 0.9% 100 ML 100 ML IV SCH (12:20)
[2019-06-21] MEDS: MONTELUKAST SODIUM 10 MG TAB PO SCH (12:20)
[2019-06-21] MEDS: PRAMIPEXOLE DIHYDROCHLORIDE 1 MG TAB PO SCH (21:00)
[2019-06-21] MEDS: ATORVASTATIN 20 MG TAB PO SCH (21:00)
[2019-06-22] VITALS: BP 130/59
[2019-06-22] MEDS: ALBUTEROL/IPRATROPIUM 3 ML NEB NEB SCH ×2 (00:05→07:20)
[2019-06-22] MEDS: CEFEPIME 2 GM/NS 0.9% 100 ML 100 ML IV SCH (00:45)
[2019-06-22] MEDS: AZITHROMYCIN 500MG/NS 250 ML 250 ML IV SCH (01:23)
[2019-06-22 04:00] VITALS: BP 138/61
--- NOTE | 2019-06-22 07:02 | NUR ---
RECEIVED PATIENT RESTING IN BED, NO ACUTE DISTRESS NOTED. NO S/S OF PAIN NOTED AT THIS TIME. CALL LIGHT WITHIN REACH. BED IN THE LOWEST POSITION.
[2019-06-22 07:36] VITALS: BP 148/67
[2019-06-22] MEDS: PANTOPRAZOLE SOD 40 MG TABEC PO SCH (09:21)
[2019-06-22] MEDS: MONTELUKAST SODIUM 10 MG TAB PO SCH (09:21)
[2019-06-22] MEDS: IRON SUCROSE 100 MG in SODIUM CHLORIDE 0.9% 100 ML 100 ML IV SCH (09:21)
[2019-06-22] MEDS: CYANOCOBALAMIN INJ 1,000 MCG/ML VIAL IM SCH (09:21)
[2019-06-22 11:02] VITALS: BP 148/67
[2019-06-22 11:10] VITALS: BP 127/60
--- NOTE | 2019-06-22 11:27 | NUR ---
EDUCATED ABOUT IMM, SIGNED, FILED IN CHART, WITH COPY LEFT WITH FAMILY AT BEDSIDE.
--- NOTE | 2019-06-22 11:40 | NUR ---
Dk Owen is here to deliver oxygen to pt's bedside.
--- NOTE | 2019-06-22 12:45 | NUR ---
RECEIVED DC ORDER FROM MD. PATIENT IS IN STABLE CONDITION. IV LINE TO RIGHT FOREARM DCD WITH TIP INTACT, PRESSURE APPLIED TO SITE, NO BLEEDING NOTED. DISCHARGE TEACHING PROVIDED, PATIENT VERBALIZED UNDERSTANDING. DISCHARGE FOLDER WITH PRESCRIPTIONS AND PERSONAL ITEMS ON HAND. PATIENT ACCOMPANIED TO PRIVATE AUTO VIA WHEELCHAIR BY STAFF.
== END 2019-06-22 12:45 | disposition home or self-care (01) | DRG 193 ==
LOC: ER 09:52 → ERHOLD 11:46 → MED/SURG3 16:36
PROVIDERS: ADMIT Internal Medicine; ATTEND Internal Medicine
PROC: 30233N1 Transfusion of Nonautologous Red Blood Cells into Peripheral Vein, Percutaneous Approach (ICD-10-PCS; principal; 2019-06-18)
DX: J18.9 Pneumonia, unspecified organism (principal); K57.31 Diverticulosis of large intestine without perforation or abscess with bleeding; C34.90 Malignant neoplasm of unspecified part of unspecified bronchus or lung; J44.1 Chronic obstructive pulmonary disease with (acute) exacerbation; J44.0 Chronic obstructive pulmonary disease with (acute) lower respiratory infection; D63.8 Anemia in other chronic diseases classified elsewhere; D51.9 Vitamin B12 deficiency anemia, unspecified; D64.81 Anemia due to antineoplastic chemotherapy; F17.210 Nicotine dependence, cigarettes, uncomplicated
CPT/HCPCS: 36415; 70450; 71045; 71250; 80048; 80053; 81001; 82270; 82550; 82553; 82607; 82746; 83605; 84443; 84484; 85025; 85610; 85730; 86850; 86900; 86920; 87040; 93005; 94640; 97139; 99285; J0456; J1200; J1756; J2405; J3370; J3420; J7030; J7050; P9016

== ENCOUNTER 2019-12-12 18:52 | Observation (INO) | payer OTHER ==
[~2019-12-12] VITALS: Ht 160 cm; Wt 60.3 kg
[~2019-12-12 18:52] MED LIST changes: +MIRAPEX1 MG PO; +MONTELUKAST SOD10 MG PO; +PLAVIX75 MG PO; +VENTOLIN HFA18 GM; +trelegy PO
[2019-12-12] MEDS ORDERED: ASPIRIN 81 MG CHEW TAB PO ONE (19:15)
--- NOTE | 2019-12-12 19:48 | Diagnostic Imaging Report ---
Examination: CT head without contrast Clinical Indication: Facial droop. Technique: Transaxial noncontrast images from the skull base through the vertex were obtained. Sagittal and coronal reformatted images were done. Dose modulation, iterative reconstruction, and/or weight based adjustment of the mA/kV was utilized to reduce the radiation dose to as low as reasonably achievable. Comparison: Head CT dated 06/15/2019. Findings: Scalp: No abnormalities. Bones: Intact. No fractures. No blastic or lytic lesions. Brain sulci: Mild volume loss for patient's age. Ventricles: No hydrocephalus. Extra-axial space: No abnormalities. Parenchyma: Again seen are patchy areas of low-attenuation within subcortical and periventricular white matter, nonspecific, but could represent microvascular ischemic disease. Chronic lacunar infarcts are again identified in the bilateral striatocapsular regions and right caudate head and putamen. No masses, hemorrhage, or acute or chronic cortical based vascular insults. Suprasellar region: No abnormalities. Craniocervical junction: The foramen magnum is patent. No Chiari one malformation. Impression: 1. No new or acute intracranial finding. No change from prior head CT dated 06/15/2019. 2. Unchanged chronic microvascular ischemic change and volume loss and chronic lacunar infarcts. Signed by: Dr. Rose Mancilla M.D. on 12/12/2019 7:46 PM
--- NOTE | 2019-12-12 20:21 | Diagnostic Imaging Report ---
EXAMINATION: CHEST SINGLE (NOT PORTABLE) INDICATION: Altered mental status. Stroke symptoms. COMPARISON: Chest radiograph of FINDINGS: LINES/TUBES:Left chest port with catheter tip in the cavoatrial junction, unchanged. LUNGS:The lungs are moderately hyperinflated. With demonstration of patchy airspace disease in the left lung base laterally, decreased from prior exam. 9 mm nodular density projected on the right lower hemithorax. Right basilar density suggestive of atelectasis. PLEURA:Blunting of the left lateral costophrenic sulcus is either a small effusion versus pleural scarring, unchanged. No pneumothorax. MEDIASTINUM:The cardiomediastinal silhouette is normal for size. Atherosclerotic calcifications of the thoracic aorta. BONES/SOFT TISSUES:No acute osseous injury. ABDOMEN:No free air under the diaphragm. IMPRESSION: Mild interval decrease in patchy airspace disease previously present in the left lower lobe, otherwise no significant change. Signed by: Dr. Fátima Arnold M.D. on 12/12/2019 8:19 PM
[2019-12-12 20:32] LABS: BASOPHILS % 0.5 % (0.0-1.0); EOSINOPHILS # (AUTO) 0.5 (0.0-0.4); EOSINOPHILS % 5.9 % (0.0-6.0); HEMATOCRIT 46.2 % (34.2-44.1); HEMOGLOBIN 14.2 g/dL (12.0-16.0); LYMPHOCYTES # (AUTO) 2.1 (1.0-3.2); LYMPHOCYTES % 25.1 % (18.0-39.1); MEAN CORPUSCULAR HEMOGLOBIN 29.3 pg (28-32); MEAN CORPUSCULAR HGB CONC 30.7 g/dL (31-35); MEAN CORPUSCULAR VOLUME 95.5 fL (81-99); MONOCYTES # (AUTO) 0.8 (0.2-0.8); MONOCYTES % 9.8 % (4.4-11.3); NEUTROPHILS % 58.5 % (38.7-80.0); PLATELET COUNT 235 x10e3/uL (140-360); RED BLOOD COUNT 4.84 x10e6/uL (3.6-5.1); RED CELL DISTRIBUTION WIDTH 13.9 % (11.7-14.4)
[2019-12-12 20:53] LABS: ALANINE AMINOTRANSFERASE 16 IU/L (0-55); ALBUMIN 3.9 g/dL (3.5-5.0); ALKALINE PHOSPHATASE 146 IU/L (40-150); ANION GAP 15.2 mmol/L (8-16); BLOOD UREA NITROGEN 13 mg/dL (7-26); BUN/CREATININE RATIO 17 (6-25); CALCIUM 11.3 mg/dL (8.4-10.2); CARBON DIOXIDE 23 mmol/L (22-29); CHLORIDE 105 mmol/L (98-107); CREATINE KINASE 58 IU/L (29-168); CREATININE, SERUM 0.78 mg/dL (0.57-1.11); EST GLOMERULAR FILTRATION RATE > 60 ML/MIN (60-); GLUCOSE 108 mg/dL (74-118); POTASSIUM 4.2 mmol/L (3.5-5.1); SODIUM 139 mmol/L (136-145)
[2019-12-13] VITALS (8 sets, daily range): BP systolic 104–149; BP diastolic 57–75
[2019-12-13 07:03] LABS: BASOPHILS # (AUTO) 0.1 (0.0-0.1); BASOPHILS % 0.8 % (0.0-1.0); EOSINOPHILS # (AUTO) 0.6 (0.0-0.4); EOSINOPHILS % 6.4 % (0.0-6.0); HEMATOCRIT 42.2 % (34.2-44.1); HEMOGLOBIN 13.5 g/dL (12.0-16.0); LYMPHOCYTES # (AUTO) 2.4 (1.0-3.2); LYMPHOCYTES % 26.3 % (18.0-39.1); MEAN CORPUSCULAR HEMOGLOBIN 29.5 pg (28-32); MEAN CORPUSCULAR VOLUME 92.3 fL (81-99); MONOCYTES % 11.2 % (4.4-11.3); NEUTROPHILS % 55.1 % (38.7-80.0); PLATELET COUNT 214 x10e3/uL (140-360); RED BLOOD COUNT 4.57 x10e6/uL (3.6-5.1); RED CELL DISTRIBUTION WIDTH 13.9 % (11.7-14.4)
[2019-12-13 07:28] LABS: BLOOD UREA NITROGEN 11 mg/dL (7-26); BUN/CREATININE RATIO 16 (6-25); CALCIUM 10.6 mg/dL (8.4-10.2); CARBON DIOXIDE 22 mmol/L (22-29); CHLORIDE 109 mmol/L (98-107); CREATININE, SERUM 0.68 mg/dL (0.57-1.11); EST GLOMERULAR FILTRATION RATE > 60 ML/MIN (60-); GLUCOSE 83 mg/dL (74-118); SODIUM 140 mmol/L (136-145)
[2019-12-13 07:59] LABS: CHOL/HDL RATIO 3.5 (3.0-3.6)
[2019-12-13] MEDS ORDERED: ALBUTEROL/IPRATROPIUM 3 ML NEB NEB PRN (08:15)
[2019-12-13] MEDS: PANTOPRAZOLE SOD 40 MG TABEC PO SCH (09:23)
[2019-12-13] MEDS: ASPIRIN 81 MG ENTERIC COATED PO SCH (09:23)
--- NOTE | 2019-12-13 10:48 | History and Physical ---
The patient on observation. PRIMARY CARE PHYSICIAN: Oscar Pierson MD. CHIEF COMPLAINT: Left facial droop after waking up at night. HISTORY OF PRESENT ILLNESS: The patient is a 74-year-old female apparently was asleep and when she woke up she had some slurred speech. The patient is otherwise stable. Currently, the patient had no slurred speech. CT scan of the brain otherwise unremarkable. The patient did have chemotherapy recently. She is stable. PAST MEDICAL HISTORY: Lung cancer, undergoing chemotherapy. Chronic anemia. PAST SURGICAL HISTORY: Hysterectomy. SOCIAL HISTORY: The patient just recently quit smoking due to lung cancer. ALLERGIES: NO KNOWN ALLERGY. HOME MEDICATIONS: The patient is taking albuterol, atorvastatin, Protonix, Mirapex, and trilogy. PHYSICAL EXAMINATION: VITAL SIGNS: Temperature is 98, blood pressure 136/73, pulse rate is 80, respirations 18. GENERAL: The patient is not in acute distress. She is awake. HEENT: Normocephalic and atraumatic. Anicteric. NECK: Supple grossly. PULMONARY: Diminished breath sounds. CARDIOVASCULAR: S1, S2. Regular rhythm. ABDOMEN: Soft. Positive bowel sounds. Grossly nontender, non-distention. EXTREMITIES: No cyanosis or edema. NEUROLOGIC: No focal deficit. LABORATORY DATA: Sodium is 139, potassium 4.2, chloride 105, bicarb 23, BUN 13, creatinine 0.7, glucose 108. WBC is 9.1, hemoglobin 13.5, hematocrit 42.2, platelets 214. CT scan unremarkable. No acute changes. Chest x-ray, left lung cancer. ASSESSMENT AND PLAN: 1. Possible transient ischemic attack, unspecified with facial droop, completely resolved. 2. Baseline lung cancer undergoing chemotherapy. PLAN: MRI of the brain without contrast. I will obtain a carotid Doppler echocardiogram. Resume home medication. Baby aspirin a day. MD LATOYA Culver/SHAHRIARL /[id number]
--- NOTE | 2019-12-13 11:38 | Consultation ---
DATE OF CONSULTATION: 12/13/2019 Neurology Consultation HISTORY OF PRESENT ILLNESS: Mrs. Carmina Ratliff is a 74-year-old female presented with right-sided facial droop and mild dysarthria She does not take aspirin at home . She does take she does have hypertension and hyperlipidemia. No diabetes. REVIEW OF SYSTEMS: Only endorses dysarthria and facial weakness, which have now resolved. No headache, chest pain, dizziness, nausea, vomiting. Otherwise, 14-point review of systems negative. PHYSICAL EXAMINATION: VITAL SIGNS: She is afebrile. Temperature is 98.4, blood pressure is 142/76, heart rate is 77 and regular. HEENT: Shows extraocular muscles are intact. Face is symmetric. Speech is clear. No nuchal rigidity. CARDIOVASCULAR: Regular rate and rhythm. PULMONARY: Clear to auscultation. ABDOMEN: Soft, nontender. Reflexes are symmetric. EXTREMITIES: Strength is 4+/5 in the lower extremities, 4/5 in the upper extremities. No ataxia noted on exam. Gait is within normal limits. ASSESSMENT AND PLAN: The patient comes in with possible transient ischemic attack not taking at home. Started her on atorvastatin and aspirin daily, get a lipid panel, echocardiogram, carotid duplex, and telemetry and we will follow up as lipid panel and diagnostic results return. MD FRANCISCO J CORTEZ/MODL /[id number]
--- NOTE | 2019-12-13 12:10 | Diagnostic Imaging Report ---
History: Facial droop Comparison studies: CT head 12/12/19 Technique: Sagittal T2; axial DWI, FLAIR, MPGR, T1, Coronal FLAIR. Intravenous contrast: None Findings: Scalp: Normal in signal . No masses . Bone marrow: Normal in signal intensity. Extra-axial: No masses, no fluid collections. Brain sulci: Mildly prominent. Ventricles: Normal in size . No hydrocephalus . Parenchyma: Scattered small T-2/flair hyperintensities of the supratentorial white matter, nonspecific. Chronic lacunar infarcts at the bilateral striatocapsular regions. No masses, hemorrhage, acute or chronic vascular insults. Suprasellar region: No abnormalities. Craniocervical junction: No abnormalities. Patent foramen magnum. No Chiari one malformation. Vessels: Normal flow-voids in the arteries and sinuses. Mucosal thickening at the right mastoid air cells, related to nonspecific inflammation. IMPRESSION: 1. No acute abnormalities. 2. Mild chronic microvascular ischemic changes of the white matter. 3. Mild diffuse volume loss. 4. Bilateral striatocapsular chronic lacunar infarcts. Signed by: DR Reagan Almazan M.D. on 12/13/2019 12:08 PM
[2019-12-13] MEDS: ALBUTEROL/IPRATROPIUM 3 ML NEB NEB SCH ×2 (13:28→19:48)
[2019-12-13] MEDS ORDERED: PRAMIPEXOLE DIHYDROCHLORIDE 1 MG TAB PO SCH (21:00)
[2019-12-13] MEDS ORDERED: ATORVASTATIN 20 MG TAB PO SCH (21:00)
[2019-12-14] VITALS: BP 113/60
[2019-12-14] MEDS: ALBUTEROL/IPRATROPIUM 3 ML NEB NEB SCH ×2 (01:00→06:50)
[2019-12-14 04:00] VITALS: BP 120/90
--- NOTE | 2019-12-14 07:00 | NUR ---
RECEIVED BEDSIDE SHIFT REPORT FROM MARCIAL CHÁVEZ. PATIENT RESTING AT THIS TIME, DENIES PAIN AND DISCOMFORT AT THIS TIME. FAMILY AT BEDSIDE. CALL LIGHT WITHIN REACH.
[2019-12-14 08:00] VITALS: BP 117/69
[2019-12-14 08:25] VITALS: BP 117/69
--- NOTE | 2019-12-14 08:49 | NUR ---
S: no acute overnight events vs: 95.6 96 22 117/69 eomi perrl face symmetric speech clear no nuchal rigidity rrr cta abd soft nt aox3 sensory grossly intact strength symmetric 5/5 refelxes 1/4 toes mute no ataxia a/p TIA workup negative - start asa 81 continue statin outpt follow up w/ neurology for primary stroke prevention repatha for persistnat elevated ldl to be initiated as outp
--- NOTE | 2019-12-14 09:05 | NUR ---
PER HAT CONDITIONER, PATIENT REFUSED ECHOCARDIOGRAM. PROVIDER TO BE NOTIFIED.
[2019-12-14] MEDS: ASPIRIN 81 MG ENTERIC COATED PO SCH (09:26)
[2019-12-14] MEDS: PANTOPRAZOLE SOD 40 MG TABEC PO SCH (09:26)
--- NOTE | 2019-12-14 11:52 | NUR ---
DISCHARGE ORDERS ENTERED BY DR. OLGUIN. PATIENT TO CONTINUE ALL PREVIOUS HOME MEDICATIONS. PRESCRIPTION FOR ECOTRIN PROVIDED AND GIVEN TO PATIENT. DISCHARGE EDUCATION AND FOLLOW UP INSTRUCTIONS PROVIDED TO PATIENT/SON, VERBALIZED UNDERSTANDING. ALL BELONGINGS RETURNED TO PATIENT. VITAL SIGNS STABLE. IV DISCONTINUED WITH DISTAL TIP INTACT, DRESSING APPLIED TO SITE, NO BLEEDING NOTED. TRANSFERRED TO PRIVATE VEHICLE VIA WHEELCHAIR. PATIENT IN STABLE CONDITION, DISCHARGED WITHOUT INCIDENT.
--- NOTE | 2019-12-15 04:11 | Discharge Summary ---
PRIMARY CARE PHYSICIAN: Dr. Oscar Pierson. FINAL DIAGNOSES: 1. Possible transient ischemic attack, nonspecific. 2. Ongoing lung cancer treatment with chemotherapy. SUMMARY: The patient is a pleasant [id number] came to the hospital because she was having some symptoms of left facial droop after a week and about night. The symptoms completely resolved. The patient is otherwise stable. She did not have any aphasia or slurred speech. She communicated well. Because of her ongoing chemotherapy. The patient had workup done. Carotid Doppler, echocardiogram preliminary otherwise unremarkable. MRI of the brain was done showed no acute abnormality. She does have mild chronic microvascular ischemic changes of the white matter. The patient has also had bilateral striatocapsular chronic lacunar infarct. The patient is otherwise stable. Her hemoglobin and hematocrit stable at 14.2 and 46.2. The patient has normal platelets. The patient will go home today. Resume home medication. I will defer Ecotrin 81 mg daily. The patient is otherwise stable, discharged home. Her LDL is 91. No indication for changes of her cholesterol medication. She will continue with her Ventolin inhaler, atorvastatin, pantoprazole, and her Mirapex along with Trelegy inhaler. The patient is stable discharged home today. MD LATOYA Culver/BRENDAN /[id number]
== END 2019-12-14 11:52 | disposition home or self-care (01) ==
LOC: ER 18:52 → ERHOLD 20:40 → MED/SURG 12-13 04:23
PROVIDERS: ADMIT Internal Medicine; ATTEND Internal Medicine
DX: R29.810 Facial weakness (principal); C34.90 Malignant neoplasm of unspecified part of unspecified bronchus or lung; D64.9 Anemia, unspecified; Z87.891 Personal history of nicotine dependence; R47.1 Dysarthria and anarthria; I10 Essential (primary) hypertension; E78.5 Hyperlipidemia, unspecified; Z86.73 Personal history of transient ischemic attack (TIA), and cerebral infarction without residual deficits; Z79.899 Other long term (current) drug therapy
CPT/HCPCS: 36415 ×2; 70450; 70551; 71045; 80048; 80053; 80061; 82550; 82553; 84484; 85025 ×2; 93005; 93880; 94640 ×3; 99284; G0378 ×3; S0164 ×2